=== PATIENT | female | born 1970 | race Caucasian/White ===

== ENCOUNTER 2018-03-19 14:10 | Emergency (ER) | payer MEDICARE, MEDICAID ==
[~2018-03-19 14:10] MED LIST: HYDR50CA47 PO; IMAT400PT GT
[2018-03-19] MEDS ORDERED: amLODIPine BESYL(*) 5 MG TAB PO ONE (14:40)
[2018-03-19] MEDS ORDERED: CARVEDILOL 3.125 MG TAB PO ONE (14:40)
[2018-03-19] MEDS ORDERED: hydrALAZINE HCL 20 MG/ML VIAL IVP ONE (14:40)
--- NOTE | 2018-03-19 14:49 | ER Report ---
History and Physical Time Seen By MD: 14:25 Hx. of Stated Complaint: PT REPORTS "THERE IS A LOT GOING ON". PT IS VISITING FROM [place], OUT OF MEDICATIONS-DOES NOT KNOW WHAT MEDS SHE TAKES, HAS A HEADACHE, SORE THROAT, "I DON'T FEEL GOOD". 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 History of pulmonary embolus,, OR, splenectomy, and states she was taken off of anticoagulation 2 years ago though cannot tell us why. Lives in [place], arrives here yesterday and is staying with her mother for 1-2 months. She reports that she has not taken her medications for 2 months, presents with 2 days of "not feeling well". Specific symptoms include general fatigue, generalized weakness, shakiness, moderate gradual onset headache. Headache is worse in the front but does radiate to the back. Last similar headache was 2 months ago. Patient does not have a plan for care here at this point but was hoping to be evaluated by the cancer center while she was here. She does not recall medications or doses. She does deny chest pain, shortness of breath, abdominal pain, vomiting, fevers, weight change, night sweats. She denies lower extremity edema. REVIEW OF SYSTEMS: Constitutional: No fever, no chills. Eyes: no r diplopia, blurred vision. L blind as above ENT: sore throat, uri symptoms Cardiovascular: No chest pain, no palpitations. Respiratory: mild dyspnea Gastrointestinal: No abdominal pain, no vomiting. Genitourinary: no change in urination Musculoskeletal: No back pain. Skin: No rashes. Neurological: above Remainder of the 14 system rev: Yes Allergies: Coded Allergies: codeine (Verified Allergy, Unknown, 03/19/18) Home Meds Active Scripts Lisinopril (LISINOPRIL) 40 Mg Tablet, 40 MG PO QDAY, #14 TAB Prov:ANIA DAVILA MD 03/19/18 Amlodipine Besylate (AMLODIPINE BESYLATE) 10 Mg Tablet, 1 TAB PO QDAY, #14 TAB Prov:ANIA DAVILA MD 03/19/18 Carvedilol (CARVEDILOL) 3.125 Mg Tab, 3.125 MG PO BID, #28 TAB Prov:ANIA DAVILA MD 03/19/18 Discontinued Reported Medications Imatinib Mesylate (GLEEVEC) 400 Mg Tab, 400 MG GT DAILY, TAB 01/30/16 Discontinued Scripts Hydroxyzine Pamoate (VISTARIL) 50 Mg Capsule, 50 MG PO Q4-6H PRN for ANXIETY, #30 CAPSULE Prov:PHILL PACHECO [employer] WORK[employer] 01/30/16 Reviewed Nurses Notes: Yes Old Medical Records Reviewed: Yes Constitutional Vital Sign - Last 24 Hours 03/19/18 03/19/18 03/19/18 03/19/18 14:10 14:15 14:30 14:33 Temp 98.1 Pulse 84 86 74 Resp 18 9 B/P (MAP) 216/104 210/113 (145) Pulse Ox 94 92 O2 Delivery Room Air 03/19/18 03/19/18 03/19/18 03/19/18 14:52 14:57 15:00 15:02 Pulse ? B/P (MAP) 189/96 (127) ???/??? (1665) 03/19/18 03/19/18 03/19/18 03/19/18 15:07 15:12 15:16 15:17 Pulse 86 80 Resp 13 16 25 B/P (MAP) 158/85 (109) Pulse Ox 94 82 95 03/19/18 03/19/18 03/19/18 03/19/18 15:22 15:27 15:30 15:32 Pulse 82 85 Resp 19 27 12 B/P (MAP) 159/98 (118) Pulse Ox 96 95 03/19/18 03/19/18 03/19/18 03/19/18 15:37 15:52 16:00 16:07 Pulse 83 Resp 16 24 23 B/P (MAP) 176/101 (126) Pulse Ox 100 97 94 03/19/18 03/19/18 16:22 16:25 Pulse 81 Resp 14 B/P (MAP) 178/94 (122) Physical Exam General Appearance: The patient is alert, has no immediate need for airway protection and no signs of toxicity. Eyes: Pupils equal and round no pallor or injection. baseline loss of vision OS ENT, Mouth: mm slightly dry. Uvula midline. Respiratory: There are no retractions, lungs are clear to auscultation. Cardiovascular: Regular rate and rhythm. Gastrointestinal: Abdomen is soft and non tender, no masses, bowel sounds normal. Neurological: pt tearful but cooperative. Alert, moves all ext .No facial droop Skin: Warm and dry, no rashes. Musculoskeletal: Neck is supple non tender. Extremities are nontender, nonswollen and have full range of motion. DIFFERENTIAL DIAGNOSIS: After history and physical exam differential diagnosis was considered for altered mental status including but not limited to hypoglycemia, infectious process, electrolyte abnormality, head injury and intoxicants., Hypertensive emergency, hypertensive encephalopathy, acute kidney injury, electrolyte disorder, ACS, VTE, or other emergent etiology. Medical Decision Making Data Points Result Diagram: 03/19/18 1448 03/19/18 1448 Laboratory Hematology Test 03/19/18 14:45 03/19/18 14:48 Urine Color Yellow Urine Clarity Cloudy Urine pH 6.0 pH (4.8-9.5) Urine Specific [place] 1.021 Urine Protein 100 mg/dL (NEGATIVE) Urine Glucose (UA) Negative mg/dL (NEGATIVE) Urine Ketones Negative mg/dL (NEGATIVE) Urine Blood Negative (NEGATIVE) Urine Nitrite Negative (NEGATIVE) Urine Bilirubin Negative (NEGATIVE) Urine Urobilinogen 2.0 mg/dL (0.2-1.9) Urine Leukocyte Esterase Small (NEGATIVE) Urine RBC None /HPF (0-2/HPF) Urine WBC 19 /HPF (0-5/HPF) Urine Squamous Epithelial Cells Many /LPF (</=FEW) Urine Bacteria Few /HPF (NONE-FEW) Urine Mucus Few /HPF (NONE-FEW) Red Blood Count 5.53 M/uL (4.17-5.56) Mean Corpuscular Volume 75.1 fL (80.0-96.0) Mean Corpuscular Hemoglobin 25.0 pg (26.0-33.0) Mean Corpuscular Hemoglobin Concent 33.2 g/dL (32.0-36.0) Red Cell Distribution Width 16.4 % (11.5-14.5) Mean Platelet Volume 8.9 fL (7.2-11.1) Neutrophils (%) (Auto) 85.8 % (39.4-72.5) Lymphocytes (%) (Auto) 10.7 % (17.6-49.6) Monocytes (%) (Auto) 2.9 % (4.1-12.4) Eosinophils (%) (Auto) 0.2 % (0.4-6.7) Basophils (%) (Auto) 0.4 % (0.3-1.4) Nucleated RBC Relative Count (auto) 0.1 /100WBC Neutrophils # (Auto) 15.5 K/uL (2.0-7.4) Lymphocytes # (Auto) 1.9 K/uL (1.3-3.6) Monocytes # (Auto) 0.5 K/uL (0.3-1.0) Eosinophils # (Auto) 0.0 K/uL (0.0-0.5) Basophils # (Auto) 0.1 K/uL (0.0-0.1) Nucleated RBC Absolute Count (auto) 0.02 K/uL Peripheral Blood Smear Yes Y/N Prothrombin Time 12.8 seconds (12.0-14.4) Prothromb Time International Ratio 0.97 Activated Partial Thromboplast Time 28 seconds (23-35) Sodium Level 138 mmol/L (137-145) Potassium Level 3.8 mmol/L (3.5-5.0) Chloride Level 101 mmol/L (98-107) Carbon Dioxide Level 27 mmol/L (22-31) Blood Urea Nitrogen 18 mg/dl (7-18) Creatinine 1.00 mg/dl (0.52-1.04) Glomerular Filtration Rate Calc 60.0 Random Glucose 122 mg/dl (75-110) Calcium Level 9.0 mg/dl (8.4-10.2) Magnesium Level 2.0 mg/dl (1.7-2.2) Total Bilirubin 0.3 mg/dl (0.2-1.3) Aspartate Amino Transf (AST/SGOT) 15 U/L (0-35) Alanine Aminotransferase (ALT/SGPT) 15 U/L (0-56) Alkaline Phosphatase 70 U/L (0-126) Troponin I 0.017 ng/ml Total Protein 7.2 g/dl (6.3-8.2) Albumin 4.1 g/dl (3.5-5.0) Lipase 113 U/L (23-300) Chemistry Test 03/19/18 14:45 03/19/18 14:48 Urine Color Yellow Urine Clarity Cloudy Urine pH 6.0 pH (4.8-9.5) Urine Specific [place] 1.021 Urine Protein 100 mg/dL (NEGATIVE) Urine Glucose (UA) Negative mg/dL (NEGATIVE) Urine Ketones Negative mg/dL (NEGATIVE) Urine Blood Negative (NEGATIVE) Urine Nitrite Negative (NEGATIVE) Urine Bilirubin Negative (NEGATIVE) Urine Urobilinogen 2.0 mg/dL (0.2-1.9) Urine Leukocyte Esterase Small (NEGATIVE) Urine RBC None /HPF (0-2/HPF) Urine WBC 19 /HPF (0-5/HPF) Urine Squamous Epithelial Cells Many /LPF (</=FEW) Urine Bacteria Few /HPF (NONE-FEW) Urine Mucus Few /HPF (NONE-FEW) White Blood Count 18.1 k/uL (4.5-11.0) Red Blood Count 5.53 M/uL (4.17-5.56) Hemoglobin 13.8 g/dL (12.0-16.0) Hematocrit 41.6 % (34.0-47.0) Mean Corpuscular Volume 75.1 fL (80.0-96.0) Mean Corpuscular Hemoglobin 25.0 pg (26.0-33.0) Mean Corpuscular Hemoglobin Concent 33.2 g/dL (32.0-36.0) Red Cell Distribution Width 16.4 % (11.5-14.5) Platelet Count 207 K/uL (150-450) Mean Platelet Volume 8.9 fL (7.2-11.1) Neutrophils (%) (Auto) 85.8 % (39.4-72.5) Lymphocytes (%) (Auto) 10.7 % (17.6-49.6) Monocytes (%) (Auto) 2.9 % (4.1-12.4) Eosinophils (%) (Auto) 0.2 % (0.4-6.7) Basophils (%) (Auto) 0.4 % (0.3-1.4) Nucleated RBC Relative Count (auto) 0.1 /100WBC Neutrophils # (Auto) 15.5 K/uL (2.0-7.4) Lymphocytes # (Auto) 1.9 K/uL (1.3-3.6) Monocytes # (Auto) 0.5 K/uL (0.3-1.0) Eosinophils # (Auto) 0.0 K/uL (0.0-0.5) Basophils # (Auto) 0.1 K/uL (0.0-0.1) Nucleated RBC Absolute Count (auto) 0.02 K/uL Peripheral Blood Smear Yes Y/N Prothrombin Time 12.8 seconds (12.0-14.4) Prothromb Time International Ratio 0.97 Activated Partial Thromboplast Time 28 seconds (23-35) Glomerular Filtration Rate Calc 60.0 Calcium Level 9.0 mg/dl (8.4-10.2) Magnesium Level 2.0 mg/dl (1.7-2.2) Total Bilirubin 0.3 mg/dl (0.2-1.3) Aspartate Amino Transf (AST/SGOT) 15 U/L (0-35) Alanine Aminotransferase (ALT/SGPT) 15 U/L (0-56) Alkaline Phosphatase 70 U/L (0-126) Troponin I 0.017 ng/ml Total Protein 7.2 g/dl (6.3-8.2) Albumin 4.1 g/dl (3.5-5.0) Lipase 113 U/L (23-300) Coagulation Test 03/19/18 14:48 Prothrombin Time 12.8 seconds Prothromb Time International Ratio 0.97 Activated Partial Thromboplast Time 28 seconds Urinalysis Test 03/19/18 14:45 Urine Color Yellow Urine Clarity Cloudy Urine pH 6.0 pH (4.8-9.5) Urine Specific [place] 1.021 Urine Protein 100 mg/dL (NEGATIVE) Urine Glucose (UA) Negative mg/dL (NEGATIVE) Urine Ketones Negative mg/dL (NEGATIVE) Urine Blood Negative (NEGATIVE) Urine Nitrite Negative (NEGATIVE) Urine Bilirubin Negative (NEGATIVE) Urine Urobilinogen 2.0 mg/dL (0.2-1.9) Urine Leukocyte Esterase Small (NEGATIVE) Urine RBC None /HPF (0-2/HPF) Urine WBC 19 /HPF (0-5/HPF) Urine Squamous Epithelial Cells Many /LPF (</=FEW) Urine Bacteria Few /HPF (NONE-FEW) Urine Mucus Few /HPF (NONE-FEW) ED Course/Re-evaluation ED Course 47 f with CML, HTN, BPD, hx cva, lives in [facility], per prior reports has not been consistent with taking medications, presents with burris, htn, malaise after not taking meds x 2 mo. She is staying with her mother and plans to be here 'a month or so'. Her initial exam is nonfocal and given htn, burris, I considered sah, ich, or other emergent etiology. Symptoms improved somewhat with bp management, with rpt exam unremarkable with exception of complete reproduction of pain with r occipital palpation c/w tension burris. After ED eval, unlikely pt has emergent etiology and understands need to est care in area and take meds daily. D/c with mother with SRP's. Decision to Disposition Date: Mar 19, 2018 Decision to Disposition Time: 16:14 Depart Departure Latest Vital Signs Vital Signs Date Time Temp Pulse Resp B/P (MAP) Pulse Ox O2 Delivery O2 Flow Rate FiO2 03/19/18 16:25 178/94 (122) 03/19/18 16:22 81 14 03/19/18 16:07 94 03/19/18 14:10 98.1 Room Air Impression: Primary Impression: Uncontrolled hypertension Additional Impression: Headache Condition: Improved Disposition: HOME OR SELF-CARE Referrals: [facility] New Scripts Lisinopril (LISINOPRIL) 40 Mg Tablet 40 MG PO QDAY, #14 TAB Prov: ANIA DAVILA MD 03/19/18 Amlodipine Besylate (AMLODIPINE BESYLATE) 10 Mg Tablet 1 TAB PO QDAY, #14 TAB Prov: ANIA DAVILA MD 03/19/18 Carvedilol (CARVEDILOL) 3.125 Mg Tab 3.125 MG PO BID, #28 TAB Prov: ANIA DAVILA MD 03/19/18 Patient Instructions: Acute Headache (ED), Hypertension (DC) Additional Instructions: I have prescribed 3 blod pressure medications for you, for 2 weeks. Please follow up this week with the [facility] for further evaluation and prescriptions as needed if you will be here longer than 2 weeks. Your headache d oes not appear to be a serious cause right now, but please return if you have new, worsening, or concerning symptoms. It is important you establish care in the area if you are going to be staying here longer than 1-2 weeks, and you coordinate this care with your home physicians. Problem Qualifiers Additional Impression: Headache Headache type: unspecified Headache chronicity pattern: unspecified jonna fuentes Intractability: not intractable Qualified Codes: R51 - Headache ANIA DAVILA MD Mar 19, 2018 14:49
[2018-03-19] MEDS ORDERED: NS(*) 0.9% 1000 ML BAG 1,000 ML IV ONE (14:50)
[2018-03-19 15:02] LABS: PLATELET COUNT, AUTOMATED 207 K/uL (150-450)
[2018-03-19 15:17] LABS: INR 0.97
--- NOTE | 2018-03-19 15:18 | RADIOLOGY IMAGING REPORT ---
[place] [facility] [place] Julia You : 1970 MR: [id number] V: [id number] EXAM DATE: ORDERING PHYSICIAN: ANIA DAVILA TECHNOLOGIST: [place] [facility] [place] You : 1970 Visit/Account:[id number] Date of Sevice: 03/19/2018 CHEST PA LAT Additional pertinent History: Altered mental status COMPARISON STUDIES: 01/30/2016 FINDINGS: Support lines and catheters: None Lungs and Pleura: Lung parkinson well expanded with no infiltrates or consolidations. No parenchymal ma ss lesions are seen. There are no effusions Heart and vasculature: Negative. Karon and Mediastinum: Negative. Bones and Chest wall: Status post anterior cervical fusion at the C5-6 level. Upper Abdomen: Negative. IMPRESSION: 1. Negative chest for acute cardiopulmonary disease. Report Dictated By: Prem Cardenas MD at 03/19/2018 3:12 PM Report E-Signed By: Prem Cardenas MD at 03/19/2018 3:13 PM WSN:[email or web address]
--- NOTE | 2018-03-19 15:29 | RADIOLOGY IMAGING REPORT ---
FACILITY: [facility] PATIENT NAME: Julia You : 1970 MR: [id number] V: [id number] EXAM DATE: ORDERING PHYSICIAN: ANIA DAVILA TECHNOLOGIST: Location: [facility] [place] Patient: Julia You : 1970 Visit/Account:[id number] Date of Sevice: 03/19/2018 CT Head without contrast Indication: Altered mental status. History of hemorrhagic CVA. Comparison: None available Technique: Axial CT images were obtained through the brain from the skull base to the vertex without administration of IV contrast. Reformatted coronal and sagittal images were also obtained. One of the following dose optimization techniques was utilized in the performance of this exam: autom ated exposure control; adjustment of the mA and/or kV according to the patient's size; or use of an i terative reconstruction technique. Specific details can be referenced in the facility's radiology CT exam operational policy. Findings: No evidence of mass, mass effect, or midline shift. No acute intracranial hemorrhage or acute territorial infarction. No extra-axial fluid collection or hydrocephalus. Significant periventricular white matter changes w ith a small previous posterior right frontal ischemic event. There may be similar areas of decreased attenuation within the midbrain. Trejo/white matter differentiation appears normal. Bony structures show no fractures or lesions. The visualized paranasal sinuses and mastoid air cells are clear. IMPRESSION: 1. No acute intracranial abnormality. 2. Prominent periventricular changes which are nonspecific and could be due to small vessel ischemic changes, white matter disease or post inflammatory process. Previous small old ischemic event to th e posterior right frontal lobe. Report Dictated By: Jd Felipe at 03/19/2018 3:18 PM Report E-Signed By: Jd Felipe at 03/19/2018 3:24 PM WSN:[email or web address]
[2018-03-19] MEDS ORDERED: METOCLOPRAMIDE 10 MG/2 ML SDV IVP ONE (15:40)
[2018-03-19] MEDS ORDERED: ACETAMINOPHEN 325 MG TAB PO ONE (15:40)
[2018-03-19] MEDS ORDERED: diphenhydrAMINE 50 MG/ML VIAL IVP ONE (15:40)
--- NOTE | 2018-03-19 16:12 | EKG ---
FACILITY: [facility] PATIENT NAME: FRANK DE : [id number] MR: [id number] V: [id number] EXAM DATE: ORDERING PHYSICIAN: ANIA DAVILA TECHNOLOGIST: PEDRO Varela Reason : DYSPNEA Blood Pressure : / mmHG Vent. Rate : 071 BPM Atrial Rate : 071 BPM P-R Int : 198 ms QRS Dur : 080 ms QT Int : 420 ms P-R-T Axes : 060 -16 035 degrees QTc Int : 456 ms Normal sinus rhythm Minimal voltage criteria for LVH, may be normal variant Inferior infarct , age undetermined Cannot rule out Anterior infarct , age undetermined Abnormal ECG When compared with ECG of 30-JAN-2016 11:09, Relatively unchanged Confirmed by FRANCISCO LUNA ([id number]) on 03/19/2018 5:57:32 PM Referred By: GIOVANNI Confirmed By:FRANCISCO LUNA
[2018-03-19] MEDS ORDERED: AMLO-127 PO (16:16)
[2018-03-19] MEDS ORDERED: CAR3.125 PO (16:16)
[2018-03-19] MEDS ORDERED: LISI-374 PO (16:20)
[2018-03-19 16:25] VITALS: BP 178/94
[2018-03-22] MEDS ORDERED: CIPR-214 PO (16:24)
== END 2018-03-19 16:35 | disposition home or self-care (01) ==
LOC: ER 14:42
DX: I10 Essential (primary) hypertension (principal); R51 Headache
CPT/HCPCS: 36415; 70450; 71046; 81001; 83690; 83735; 84484; 85025; 85610; 85730; 93005; 96361; 96374; 96375; 99284; A9270; J0360; J1200; J2765; J7030; 82040; 82247; 82310; 82374; 82435; 82565; 82947; 84075; 84132; 84155; 84295; 84450; 84460; 84520

== ENCOUNTER → 2018-03-22 | Outpatient (CLI) | payer MEDICARE, MEDICAID ==
[~2018-03-22] MED LIST changes: +AMLO-127 PO; +CAR3.125 PO; +CIPR-214 PO; +LISI-374 PO
[2018-03-22 11:13] LABS: PLATELET COUNT, AUTOMATED 234 K/uL (150-450)
[2018-03-22 11:29] LABS: LDL CHOLESTEROL 96 mg/dl
== END ==
LOC: LAB 10:42
PROVIDERS: ATTEND Nurse Practitioner Primary Care
DX: E78.00 Pure hypercholesterolemia, unspecified (principal); E11.9 Type 2 diabetes mellitus without complications; R53.83 Other fatigue; C92.10 Chronic myeloid leukemia, BCR/ABL-positive, not having achieved remission; I10 Essential (primary) hypertension; N39.0 Urinary tract infection, site not specified
CPT/HCPCS: 36415; 81001; 82040; 82043; 82247; 82306; 82310; 82374; 82435; 82465; 82565; 82607; 82728; 82746; 82947; 83036; 83540; 83550; 83718; 84075; 84132; 84155; 84295; 84443; 84450; 84460; 84478; 84520; 85025; 87088

== ENCOUNTER → 2018-03-27 | Outpatient (CLI) | payer MEDICARE, MEDICAID ==
[~2018-03-27] MED LIST changes: +ATOR40TA69 PO; +CHOL500050 PO
[2018-03-27 14:31] LABS: PLATELET COUNT, AUTOMATED 233 K/uL (150-450)
--- NOTE | 2018-03-27 14:52 | RADIOLOGY IMAGING REPORT ---
FACILITY: [facility] PATIENT NAME: Julia You : 1970 MR: [id number] V: [id number] EXAM DATE: ORDERING PHYSICIAN: JANICE GRIJALVA TECHNOLOGIST: Location: [facility] - [place] Patient: Julia You : 1970 Visit/Account:[id number] Date of Sevice: 03/27/2018 Exam type: CHEST PA LAT History: Fatigue and weakness for several days Comparison: March 19, 2018 Findings: The lungs are free of acute effusions, infiltrates or edema. The cardiac silhouette is normal in siz e. The trachea is in midline. Incompletely imaged are postsurgical changes from anterior fusion of the lower cervical spine. IMPRESSION: 1. No acute cardiopulmonary process is seen Report Dictated By: Zoe Gillette MD at 03/27/2018 2:44 PM Report E-Signed By: Zoe Gillette MD at 03/27/2018 2:48 PM WSN:[email or web address]
== END ==
LOC: RAD 13:59
PROVIDERS: ATTEND Nurse Practitioner Primary Care
DX: R53.83 Other fatigue (principal); R53.1 Weakness
CPT/HCPCS: 36415; 71046; 82040; 82247; 82310; 82374; 82435; 82565; 82947; 83735; 84075; 84132; 84155; 84295; 84450; 84460; 84520; 85025

== ENCOUNTER 2018-04-03 03:34 | Emergency (ER) | payer MEDICARE, MEDICAID ==
--- NOTE | 2018-04-03 03:30 | ER Report ---
History and Physical Time Seen By MD: 03:29 HPI/ROS CHIEF COMPLAINT: Syncopal episode HISTORY OF PRESENT ILLNESS: Patient is a 47-year-old female here status post syncopal episode after going to the bathroom and getting up from a seated position. Patient reports that she became lightheaded when she stood up quickly and woke up on the ground with her mother present. Patient denies headache, blurred vision, focal neurological findings. She did recently just start taking trazodone for sleep aid. Patient is hemodynamically stable at time of e valuation. REVIEW OF SYSTEMS: Constitutional: No fever, no chills. Eyes: No discharge. ENT: No sore throat. Cardiovascular: No chest pain, no palpitations. Respiratory: No cough, no shortness of breath. Gastrointestinal: No abdominal pain, no vomiting. Genitourinary: No hematuria. Musculoskeletal: No back pain. Skin: No rashes. Neurological: No headache. Allergies: Coded Allergies: codeine (Verified Allergy, Unknown, 03/19/18) Home Meds Active Scripts Trazodone Hcl (TRAZODONE HCL) 50 Mg Tablet, 0.5-1 TAB PO QHS PRN for diff sleeping, #30 TAB Prov:KALINA FLANAGAN MD 04/01/18 Cholecalciferol (Vitamin D3) (VITAMIN D3) 50,000 Unit Capsule, 1 CAP PO QWEEK, #8 CAPSULE 1 Refill Prov:KALINA FLANAGAN MD 04/01/18 Atorvastatin Calcium (ATORVASTATIN CALCIUM) 40 Mg Tablet, 1 TAB PO QDAY for 30 Days, #30 TAB 3 Refills Prov:KALINA FLANAGAN MD 04/01/18 Lisinopril (LISINOPRIL) 40 Mg Tablet, 40 MG PO QDAY, #30 TAB 5 Refills Prov:KALINA FLANAGAN MD 04/01/18 Amlodipine Besylate (AMLODIPINE BESYLATE) 10 Mg Tablet, 1 TAB PO QDAY, #30 TAB 5 Refills Prov:KALINA FLANAGAN MD 04/01/18 Carvedilol (CARVEDILOL) 3.125 Mg Tab, 3.125 MG PO BID, #30 TAB 5 Refills Prov:KALINA FLANAGAN MD 04/01/18 Smoking Status: Never Smoker Constitutional Vital Sign - Last 24 Hours 04/03/18 04/03/18 04/03/18 04/03/18 03:31 03:34 03:44 03:54 Temp 97.8 Pulse 60 ??? 62 ??? Resp 16 19 B/P (MAP) 99/74 99/74 (82) Pulse Ox 92 92 91 O2 Delivery Room Air 04/03/18 04/03/18 04/03/18 04/03/18 04:00 04:04 04:08 04:14 Pulse ??? 61 Resp 13 B/P (MAP) ???/??? (1665) 112/71 (85) Pulse Ox 93 04/03/18 04/03/18 04/03/18 04:24 04:30 04:34 Pulse 62 66 Resp 23 14 B/P (MAP) 102/56 (71) Pulse Ox 92 92 Physical Exam General Appearance: The patient is alert, has no immediate need for airway protection and no signs of toxicity. No acute distress Eyes: Pupils equal and round no pallor or injection. ENT, Mouth: Mucous membranes are moist. Respiratory: There are no retractions, lungs are clear to auscultation. Cardiovascular: Regular rate and rhythm. Gastrointestinal: Abdomen is soft and non tender, no masses, bowel sounds normal. Neurological: No focal neurological deficits on examination Skin: Warm and dry, no rashes. Musculoskeletal: Neck is supple non tender. Extremities are nontender, nonswollen and have full range of motion. DIFFERENTIAL DIAGNOSIS: After history and physical exam differential diagnosis was considered for medication side effect, dehydration, orthostasis, trauma, concussion, electrolyte abnormality Medical Decision Making Data Points Result Diagram: 04/03/18 0343 04/03/18 0343 Laboratory Hematology Test 04/03/18 03:43 Red Blood Count 5.79 M/uL (4.17-5.56) Mean Corpuscular Volume 78.2 fL (80.0-96.0) Mean Corpuscular Hemoglobin 24.5 pg (26.0-33.0) Mean Corpuscular Hemoglobin Concent 31.3 g/dL (32.0-36.0) Red Cell Distribution Width 16.4 % (11.5-14.5) Mean Platelet Volume 9.2 fL (7.2-11.1) Neutrophils (%) (Auto) 83.0 % (39.4-72.5) Lymphocytes (%) (Auto) 12.7 % (17.6-49.6) Monocytes (%) (Auto) 2.8 % (4.1-12.4) Eosinophils (%) (Auto) 0.8 % (0.4-6.7) Basophils (%) (Auto) 0.7 % (0.3-1.4) Nucleated RBC Relative Count (auto) 0.0 /100WBC Neutrophils # (Auto) 14.5 K/uL (2.0-7.4) Lymphocytes # (Auto) 2.2 K/uL (1.3-3.6) Monocytes # (Auto) 0.5 K/uL (0.3-1.0) Eosinophils # (Auto) 0.1 K/uL (0.0-0.5) Basophils # (Auto) 0.1 K/uL (0.0-0.1) Nucleated RBC Absolute Count (auto) 0.00 K/uL Sodium Level 135 mmol/L (137-145) Potassium Level 4.4 mmol/L (3.5-5.0) Chloride Level 106 mmol/L (98-107) Carbon Dioxide Level 25 mmol/L (22-31) Blood Urea Nitrogen 23 mg/dl (7-18) Creatinine 1.00 mg/dl (0.52-1.04) Glomerular Filtration Rate Calc 60.0 Random Glucose 167 mg/dl (75-110) Calcium Level 9.2 mg/dl (8.4-10.2) Total Bilirubin 0.3 mg/dl (0.2-1.3) Aspartate Amino Transf (AST/SGOT) 15 U/L (0-35) Alanine Aminotransferase (ALT/SGPT) 24 U/L (0-56) Alkaline Phosphatase 62 U/L (0-126) Total Protein 7.0 g/dl (6.3-8.2) Albumin 3.9 g/dl (3.5-5.0) Chemistry Test 04/03/18 03:43 White Blood Count 17.5 k/uL (4.5-11.0) Red Blood Count 5.79 M/uL (4.17-5.56) Hemoglobin 14.2 g/dL (12.0-16.0) Hematocrit 45.3 % (34.0-47.0) Mean Corpuscular Volume 78.2 fL (80.0-96.0) Mean Corpuscular Hemoglobin 24.5 pg (26.0-33.0) Mean Corpuscular Hemoglobin Concent 31.3 g/dL (32.0-36.0) Red Cell Distribution Width 16.4 % (11.5-14.5) Platelet Count 199 K/uL (150-450) Mean Platelet Volume 9.2 fL (7.2-11.1) Neutrophils (%) (Auto) 83.0 % (39.4-72.5) Lymphocytes (%) (Auto) 12.7 % (17.6-49.6) Monocytes (%) (Auto) 2.8 % (4.1-12.4) Eosinophils (%) (Auto) 0.8 % (0.4-6.7) Basophils (%) (Auto) 0.7 % (0.3-1.4) Nucleated RBC Relative Count (auto) 0.0 /100WBC Neutrophils # (Auto) 14.5 K/uL (2.0-7.4) Lymphocytes # (Auto) 2.2 K/uL (1.3-3.6) Monocytes # (Auto) 0.5 K/uL (0.3-1.0) Eosinophils # (Auto) 0.1 K/uL (0.0-0.5) Basophils # (Auto) 0.1 K/uL (0.0-0.1) Nucleated RBC Absolute Count (auto) 0.00 K/uL Glomerular Filtration Rate Calc 60.0 Calcium Level 9.2 mg/dl (8.4-10.2) Total Bilirubin 0.3 mg/dl (0.2-1.3) Aspartate Amino Transf (AST/SGOT) 15 U/L (0-35) Alanine Aminotransferase (ALT/SGPT) 24 U/L (0-56) Alkaline Phosphatase 62 U/L (0-126) Total Protein 7.0 g/dl (6.3-8.2) Albumin 3.9 g/dl (3.5-5.0) EKG/Imaging EKG Interpretation Test Reason : SYNCOPE Blood Pressure : / mmHG Vent. Rate : 062 BPM Atrial Rate : 062 BPM P-R Int : 244 ms QRS Dur : 084 ms QT Int : 438 ms P-R-T Axes : 058 003 055 degrees QTc Int : 444 ms Sinus rhythm with 1st degree AV block Borderline left axis Probable left atrial enlargement Poor R wave progression anteriorly Nonspecific ST findings through precordial leads Confirmed by MELVA GRANADO ([id number]) on 04/03/2018 6:17:39 AM Referred By: Confirmed By:MELVA GRANADO Imaging [facility]: [facility] [place] Patient: Julia You : 1970 Visit/Account:[id number] Date of Sevice: 04/03/2018 CT BRAIN NO CONTRAST HISTORY: Fall. Syncope. COMPARISON: 03/19/2018. TECHNIQUE: Axial images were obtained from the skull base to the vertex without contrast. Sagittal and coronal reformats were performed. One of the following dose optimization techniques was utilized in the performance of this exam: Automated exposure control; adjustment of the mA and/or kV according to the patient's size; or use of an iterative reconstruction technique. Specific details can be referenced in the facility's radiology CT exam operational policy. CONTRAST: None. FINDINGS: Brain: No intracranial hemorrhage, mass, or edema. There are nonspecific periventricular, subcortical, and deep white matter low attenuation foci, severe. There is an old infarct of the right basal ganglia, unchanged. Ventricles and sulci: Sulci are normal. There is mild ex vacuo dilation of the right lateral ventricle. Osseous structures: Intact. Paranasal sinuses and mastoids: Rightward nasal septal deviation. Minimal mucosal thickening of the right maxillary sinus. Mastoids are clear. Orbits and soft tissues: There are dental caries. Bilateral optic drusen. IMPRESSION: 1. Stable appearance of the brain without acute intracranial abnormality. 2. Severe nonspecific white matter changes, potentially due to accelerated chronic microvascular ischemic change. Demyelinating disease, vasculitis, CADASIL, encephalitis, and inherited metabolic disorders can cause a similar appearance. Please correlate with clinical history. 3. Chronic infarct in the right basal ganglia, unchanged. CHEST SINGLE AP 04/03/2018 03:41 hours. HISTORY: Fall. Syncope. Cough. COMPARISON: 03/27/2018 and studies dating to 01/30/2016. TECHNIQUE: Portable semiupright AP view of the chest. FINDINGS: Tubes/lines/hardware: Partially visualized plate and screws from anterior cervical fusion. Pulmonary/pleura: Lungs are clear. There is no pneumothorax or pleural effusion. Cardiomediastinal: Cardiac and mediastinal silhouettes are within normal limits. Bones/soft tissues: No acute osseous abnormality. There is mild degenerative c hange of the spine. There is mild degenerative change of the glenohumeral joints. The visible abdomen is normal. IMPRESSION: 1. No acute cardiopulmonary process. ED Course/Re-evaluation ED Course Patient is a 47-year-old female here with complaints of syncopal episode after starting a new medication trazodone. Patient also reportedly had her syncopal episode after standing up from a seated position. Patient has no obvious signs of trauma. 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 Chest x-ray showed no acute findings. EKG showed no ischemic changes or arrhythmias. Labs were significant for white blood cell count of 17,000 however when compared to prior labs in the recent past, this was found be stable. Patient was administered 1 L normal saline for hydration. Patient was hemodynamically stable, in no acute distress at time of discharge. Return precautions provided. Close PCP follow-up recommended in 24-48 hours. Decision to Disposition Date: Apr 03, 2018 Decision to Disposition Time: 04:37 Depart Departure Latest Vital Signs Vital Signs Date Time Temp Pulse Resp B/P (MAP) Pulse Ox O2 Delivery O2 Flow Rate FiO2 04/03/18 04:34 66 14 92 04/03/18 04:30 102/56 (71) 04/03/18 03:31 97.8 Room Air Impression: Primary Impression: Syncope Condition: Improved Disposition: HOME OR SELF-CARE Patient Instructions: Syncope (ED) Additional Instructions: Please drink plenty of water. Please follow-up in the next 24-48 hours with your family doctor. Please return immediately if you develop headache, instability, recurrent loss of consciousness episodes, nausea, vomiting, visual changes, fevers or chills. Please be careful when taking trazodone as this medication may sedate you and cause you to to be unsteady on your feet ANNE-MARIE HOLT DO Apr 03, 2018 03:29
[~2018-04-03 03:34] MED LIST changes: -AZIT-1 PO; -NAPR500T31 PO; -TRAM-420 PO
[2018-04-03] MEDS ORDERED: NS(*) 0.9% 1000 ML BAG 1,000 ML IV ONE (03:41)
[2018-04-03 04:02] LABS: PLATELET COUNT, AUTOMATED 199 K/uL (150-450)
--- NOTE | 2018-04-03 04:22 | RADIOLOGY IMAGING REPORT ---
FACILITY: [facility] [place] PATIENT NAME: Julia You : 1970 MR: [id number] V: [id number] EXAM DATE: ORDERING PHYSICIAN: ANNE-MARIE HOLT TECHNOLOGIST: Location: [facility] [place] Patient: Julia You : 1970 Visit/Account:[id number] Date of Sevice: 04/03/2018 CHEST SINGLE AP 04/03/2018 03:41 hours. HISTORY: Fall. Syncope. Cough. COMPARISON: 03/27/2018 and studies dating to 01/30/2016. TECHNIQUE: Portable semiupright AP view of the chest. FINDINGS: Tubes/lines/hardware: Partially visualized plate and screws from anterior cervical fusion. Pulmonary/pleura: Lungs are clear. There is no pneumothorax or pleural effusion. Cardiomediastinal: Cardiac and mediastinal silhouettes are within normal limits. Bones/soft tissues: No acute osseous abnormality. There is mild degenerative change of the spine. The re is mild degenerative change of the glenohumeral joints. The visible abdomen is normal. IMPRESSION: 1. No acute cardiopulmonary process. Report Dictated By: Carolyn Hernandez at 04/03/2018 4:17 AM Report E-Signed By: Carolyn Hernandez at 04/03/2018 4:19 AM WSN:[id number]
[2018-04-03 04:30] VITALS: BP 102/56
--- NOTE | 2018-04-03 04:32 | RADIOLOGY IMAGING REPORT ---
[place] [facility] [place] Julia You : 1970 MR: [id number] V: [id number] EXAM DATE: ORDERING PHYSICIAN: ANNE-MARIE HOLT TECHNOLOGIST: Location: [facility] Patient: Julia You : 1970 Visit/Account:[id number] Date of Sevice: 04/03/2018 CT BRAIN NO CONTRAST HISTORY: Fall. Syncope. COMPARISON: 03/19/2018. TECHNIQUE: Axial images were obtained from the skull base to the vertex without contrast. Sagittal an d coronal reformats were performed. One of the following dose optimization techniques was utilized in the performance of this exam: Autom ated exposure control; adjustment of the mA and/or kV according to the patient's size; or use of an i terative reconstruction technique. Specific details can be referenced in the facility's radiology CT exam operational policy. CONTRAST: None. FINDINGS: Brain: No intracranial hemorrhage, mass, or edema. There are nonspecific periventricular, subcortical , and deep white matter low attenuation foci, severe. There is an old infarct of the right basal gang ky, unchanged. Ventricles and sulci: Sulci are normal. There is mild ex vacuo dilation of the right lateral ventricl e. Osseous structures: Intact. Paranasal sinuses and mastoids: Rightward nasal septal deviation. Minimal mucosal thickening of the r ight maxillary sinus. Mastoids are clear. Orbits and soft tissues: There are dental caries. Bilateral optic drusen. IMPRESSION: 1. Stable appearance of the brain without acute intracranial abnormality. 2. Severe nonspecific white matter changes, potentially due to accelerated chronic microvascular isch emic change. Demyelinating disease, vasculitis, CADASIL, encephalitis, and inherited metabolic disord ers can cause a similar appearance. Please correlate with clinical history. 3. Chronic infarct in the right basal ganglia, unchanged. Report Dictated By: Carolyn Hernandez at 04/03/2018 4:19 AM Report E-Signed By: Carolyn Hernandez at 04/03/2018 4:28 AM WSN:[id number]
--- NOTE | 2018-04-03 05:05 | EKG ---
FACILITY: PATIENT NAME: FRANK DE : [id number] MR: [id number] V: [id number] EXAM DATE: ORDERING PHYSICIAN: ANNE-MARIE HOLT TECHNOLOGIST: JAN Test Reason : SYNCOPE Blood Pressure : / mmHG Vent. Rate : 062 BPM Atrial Rate : 062 BPM P-R Int : 244 ms QRS Dur : 084 ms QT Int : 438 ms P-R-T Axes : 058 003 055 degrees QTc Int : 444 ms Sinus rhythm with 1st degree AV block Borderline left axis Probable left atrial enlargement Poor R wave progression anteriorly Nonspecific ST findings through precordial leads Confirmed by MELVA GRANADO ([id number]) on 04/03/2018 6:17:39 AM Referred By: Confirmed By:MELVA GRANADO
== END 2018-04-03 04:44 | disposition home or self-care (01) ==
LOC: ER 03:38
DX: R55 Syncope and collapse (principal)
CPT/HCPCS: 36415; 70450; 71045; 85025; 93005; 96360; 99284; J7030; 82040; 82247; 82310; 82374; 82435; 82565; 82947; 84075; 84132; 84155; 84295; 84450; 84460; 84520

== ENCOUNTER → 2018-04-03 | Outpatient (CLI) | payer MEDICARE, MEDICAID ==
[~2018-04-03] MED LIST changes: +AZIT-1 PO; +NAPR500T31 PO; +TRAM-420 PO; +TRAZ50TA34 PO
== END ==
LOC: AMB 03:07
PROVIDERS: ATTEND Nurse Practitioner
DX: R42 Dizziness and giddiness (principal); R53.1 Weakness; R47.81 Slurred speech
CPT/HCPCS: A0425; A0429

== ENCOUNTER 2018-04-14 12:09 | Emergency (ER) | payer MEDICARE, MEDICAID ==
--- NOTE | 2018-04-14 12:10 | ER Report ---
History and Physical Time Seen By MD: 12:10 HPI/ROS CHIEF COMPLAINT: Coughing up "black stuff" HISTORY OF PRESENT ILLNESS: Patient is a 47-year-old female who recently moved to [place]. She presents with 1-2 months of just not feeling well over the last few days has been coughing up some black-colored sputum. She reports some subjective fevers she denies any actual chest pain or pressure. She reports nausea but no vomiting or diarrhea. Patient has no known ill contacts. Patient does have a history of chronic myelogenous leukemia. She is currently being followed by oncology. REVIEW OF SYSTEMS: Constitutional: Subjective fevers Eyes: No discharge. ENT: No sore throat. Cardiovascular: No chest pain, no palpitations. Respiratory: Cough productive of black sputum. Gastrointestinal: No abdominal pain, no vomiting. Genitourinary: No hematuria. Musculoskeletal: No back pain. Skin: No rashes. Neurological: No headache. Electronic medical record was reviewed and lab data analyzed: Review the electronic medical record shows the patient has had multiple lab draws on the , , , and March white blood cell count ranged from 17.5 on the to its highest at 20.1 on the . Hemoglobin is between 13 and 15. Differential on the showed 81% neutrophils 13% lymphs 3.6% monos. Sedimentation rate was 10 Allergies: Coded Allergies: codeine (Verified Allergy, Unknown, 04/14/18) Home Meds Active Scripts Naproxen (NAPROXEN) 500 Mg Tablet, 1 TAB PO BID PRN for PAIN, #10 TAB 0 Refills Prov:JANICE GRIJALVA DNP, FNP-BC 04/16/18 Trazodone Hcl (TRAZODONE HCL) 50 Mg Tablet, 1-2 TAB PO QHS PRN for diff sleeping, #30 TAB 0 Refills Prov:JANICE GRIJALVA DNP, FNP-BC 04/16/18 Azithromycin (ZITHROMAX) 250 Mg Tablet, 1 TAB PO QDAY for 4 Days, #4 TAB 0 Refills first dose on 04/15/18 Prov:ANIA CEBALLOS MD 04/14/18 Cholecalciferol (Vitamin D3) (VITAMIN D3) 50,000 Unit Capsule, 1 CAP PO QWEEK, #8 CAPSULE 1 Refill Prov:KALINA FLANAGAN MD 04/01/18 Atorvastatin Calcium (ATORVASTATIN CALCIUM) 40 Mg Tablet, 1 TAB PO QDAY for 30 Days, #30 TAB 3 Refills Prov:KALINA FLANAGAN MD 04/01/18 Lisinopril (LISINOPRIL) 40 Mg Tablet, 40 MG PO QDAY, #30 TAB 5 Refills Prov:KALINA FLANAGAN MD 04/01/18 Amlodipine Besylate (AMLODIPINE BESYLATE) 10 Mg Tablet, 1 TAB PO QDAY, #30 TAB 5 Refills Prov:KALINA FLANAGAN MD 04/01/18 Carvedilol (CARVEDILOL) 3.125 Mg Tab, 3.125 MG PO BID, #30 TAB 5 Refills Prov:KALINA FLANAGAN MD 04/01/18 Reported Medications Cholecalciferol (Vitamin D3) (VITAMIN D3) 1,000 Unit Tablet, 04023 UNIT PO, TAB 04/18/18 Tramadol Hcl (TRAMADOL HCL) 50 Mg Tablet, 50 MG PO Q6H PRN for PAIN, TAB 04/14/18 Discontinued Scripts Escitalopram Oxalate (ESCITALOPRAM OXALATE) 10 Mg Tablet, 10 MG PO QDAY, #30 TAB 3 Refills Prov:KALINA FLANAGAN MD 04/19/18 Past Medical/Surgical History Past medical history for hearing impairment left ear, 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 Past surgical history for 3 prior back surgeries, hysterectomy, splenectomy and tracheostomy at the time of her stroke. Smoking Status: Never Smoker Constitutional Physical Exam General Appearance: The patient is alert, has no immediate need for airway protection and no signs of toxicity. Eyes: Pupils equal and round no pallor or injection. ENT, Mouth: Mucous membranes are moist. Respiratory: There are no retractions, lungs are clear to auscultation. Cardiovascular: Regular rate and rhythm. Gastrointestinal: Abdomen is soft and non tender, no masses, bowel sounds normal. Neurological: Awake and alert Skin: Warm and dry, no rashes. Musculoskeletal: Neck is supple non tender. Extremities are nontender, nonswollen and have full range of motion. Medical Decision Making Data Points Laboratory Hematology Test 04/14/18 12:30 Red Blood Count 5.82 M/uL (4.17-5.56) Mean Corpuscular Volume 76.0 fL (80.0-96.0) Mean Corpuscular Hemoglobin 25.2 pg (26.0-33.0) Mean Corpuscular Hemoglobin Concent 33.2 g/dL (32.0-36.0) Red Cell Distribution Width 16.4 % (11.5-14.5) Mean Platelet Volume 9.0 fL (7.2-11.1) Neutrophils (%) (Auto) 85.0 % (39.4-72.5) Lymphocytes (%) (Auto) 10.7 % (17.6-49.6) Monocytes (%) (Auto) 3.2 % (4.1-12.4) Eosinophils (%) (Auto) 0.7 % (0.4-6.7) Basophils (%) (Auto) 0.4 % (0.3-1.4) Nucleated RBC Relative Count (auto) 0.0 /100WBC Neutrophils # (Auto) 13.7 K/uL (2.0-7.4) Lymphocytes # (Auto) 1.7 K/uL (1.3-3.6) Monocytes # (Auto) 0.5 K/uL (0.3-1.0) Eosinophils # (Auto) 0.1 K/uL (0.0-0.5) Basophils # (Auto) 0.1 K/uL (0.0-0.1) Nucleated RBC Absolute Count (auto) 0.01 K/uL Prothrombin Time 12.9 seconds (12.0-14.4) Prothromb Time International Ratio 0.97 Activated Partial Thromboplast Time 31 seconds (23-35) Sodium Level 139 mmol/L (137-145) Potassium Level 4.2 mmol/L (3.5-5.0) Chloride Level 105 mmol/L (98-107) Carbon Dioxide Level 28 mmol/L (22-31) Blood Urea Nitrogen 21 mg/dl (7-18) Creatinine 1.00 mg/dl (0.52-1.04) Glomerular Filtration Rate Calc 60.0 Random Glucose 99 mg/dl (75-110) Calcium Level 9.7 mg/dl (8.4-10.2) Total Bilirubin 0.3 mg/dl (0.2-1.3) Aspartate Amino Transf (AST/SGOT) 21 U/L (0-35) Alanine Aminotransferase (ALT/SGPT) 14 U/L (0-56) Alkaline Phosphatase 76 U/L (0-126) Troponin I < 0.012 ng/ml B-Type Natriuretic Peptide 14 pg/ml (0-100) Total Protein 8.1 g/dl (6.3-8.2) Albumin 4.4 g/dl (3.5-5.0) Chemistry Test 04/14/18 12:30 White Blood Count 16.1 k/uL (4.5-11.0) Red Blood Count 5.82 M/uL (4.17-5.56) Hemoglobin 14.7 g/dL (12.0-16.0) Hematocrit 44.2 % (34.0-47.0) Mean Corpuscular Volume 76.0 fL (80.0-96.0) Mean Corpuscular Hemoglobin 25.2 pg (26.0-33.0) Mean Corpuscular Hemoglobin Concent 33.2 g/dL (32.0-36.0) Red Cell Distribution Width 16.4 % (11.5-14.5) Platelet Count 239 K/uL (150-450) Mean Platelet Volume 9.0 fL (7.2-11.1) Neutrophils (%) (Auto) 85.0 % (39.4-72.5) Lymphocytes (%) (Auto) 10.7 % (17.6-49.6) Monocytes (%) (Auto) 3.2 % (4.1-12.4) Eosinophils (%) (Auto) 0.7 % (0.4-6.7) Basophils (%) (Auto) 0.4 % (0.3-1.4) Nucleated RBC Relative Count (auto) 0.0 /100WBC Neutrophils # (Auto) 13.7 K/uL (2.0-7.4) Lymphocytes # (Auto) 1.7 K/uL (1.3-3.6) Monocytes # (Auto) 0.5 K/uL (0.3-1.0) Eosinophils # (Auto) 0.1 K/uL (0.0-0.5) Basophils # (Auto) 0.1 K/uL (0.0-0.1) Nucleated RBC Absolute Count (auto) 0.01 K/uL Prothrombin Time 12.9 seconds (12.0-14.4) Prothromb Time International Ratio 0.97 Activated Partial Thromboplast Time 31 seconds (23-35) Glomerular Filtration Rate Calc 60.0 Calcium Level 9.7 mg/dl (8.4-10.2) Total Bilirubin 0.3 mg/dl (0.2-1.3) Aspartate Amino Transf (AST/SGOT) 21 U/L (0-35) Alanine Aminotransferase (ALT/SGPT) 14 U/L (0-56) Alkaline Phosphatase 76 U/L (0-126) Troponin I < 0.012 ng/ml B-Type Natriuretic Peptide 14 pg/ml (0-100) Total Protein 8.1 g/dl (6.3-8.2) Albumin 4.4 g/dl (3.5-5.0) Coagulation Test 04/14/18 12:30 Prothrombin Time 12.9 seconds Prothromb Time International Ratio 0.97 Activated Partial Thromboplast Time 31 seconds EKG/Imaging Imaging FACILITY: [facility] PATIENT NAME: Julia You : 1970 MR: [id number] V: [id number] EXAM DATE: ORDERING PHYSICIAN: ANIA CEBALLOS TECHNOLOGIST: Location: [facility] Patient: Julia You : 1970 Visit/Account:[id number] Date of Sevice: 04/14/2018 CT angiogram chest with contrast Indication: Coughing up dark sputum. Comparison: None available. Technique: Axial CT images are obtained through the chest after administration of 85 mL Isovue 370 IV contrast. Reformatted coronal and sagittal images were reviewed as well as coronal MIP images. One of the following dose optimization techniques was utilized in the performance of this exam: automated exposure control; adjustment of the mA and/or kV according to the patient's size; or use of an iterative reconstruction technique. Specific details can be referenced in the facility's radiology CT exam operational policy. FINDINGS: No evidence of filling defect within the pulmonary vasculature to suggest pulmonary embolus. Heart is upper limits normal size without pericardial effusion. Mild coronary artery calcifications. Aorta shows no aneurysm or dissection. The mediastinum and hilar regions show no enlarged lymph nodes or abnormal density. The medial aspect of the right lower lobe does show a ill-defined interstitial opacity measuring proximally 1.5 x 1.6 x 2.5 cm without well-defined nodule. No other focal interstitial opacity. Minimal scarring is seen in the anterior aspect of the right lower lobe. No discrete nodules. No consolidations, pleural effusion or pneumothorax. Airways are clear. Bony structures show no acute fracture or aggressive bony lesions. Degenerative change seen spine. Chest wall shows no enlarged axillary lymph nodes or masses. Limited views of the upper abdomen are unremarkable. IMPRESSION: 1. No evidence of pulmonary embolus. 2. The medial aspect of the right lower lobe does show a ill-defined interstitial opacity without discrete nodule at this time. This may represent a focal area of pneumonia. However suggest a follow-up chest CT in 3 months to evaluate for clearing or other etiologies such as underlying nodule. Report Dictated By: Jd Felipe at 04/14/2018 1:33 PM Report E-Signed By: Jd Felipe at 04/14/2018 1:45 PM WSN:[id number] ED Course/Re-evaluation ED Course 04/14/2018 1:55:[address] scan of the chest was negative for pulmonary embolism however remarkable for suspected right lower lobe pneumonia. We'll treat with antibiotics. Decision to Disposition Date: Apr 14, 2018 Decision to Disposition Time: 14:06 Depart Departure Latest Vital Signs Impression: Primary Impression: Pneumonia Condition: Improved Disposition: HOME OR SELF-CARE Referrals: KALINA FLANAGAN MD Follow up in 2 days if symptoms do not improve; also you will require a follow up imaging study of your chest in 3 months to be sure that the pneumonia has improved New Scripts Azithromycin (ZITHROMAX) 250 Mg Tablet 1 TAB PO QDAY for 4 Days, #4 TAB 0 Refills first dose on 04/15/18 Prov: ANIA CEBALLOS MD 04/14/18 Patient Instructions: Community Acquired Pneumonia (ED) Problem Qualifiers Primary Impression: Pneumonia Pneumonia type: due to unspecified organism Laterality: right Lung location: lower lobe of lung Qualified Codes: J18.1 - Lobar pneumonia, unspecified organism ANIA CEBALLOS MD Apr 14, 2018 12:10
[2018-04-14] MEDS ORDERED: TRAM-420 PO (12:24)
[2018-04-14] MEDS ORDERED: NS(*) 0.9% 1000 ML BAG 1,000 ML IV ONE (12:36)
--- NOTE | 2018-04-14 12:45 | EKG ---
FACILITY: [facility] PATIENT NAME: FRANK DE : [id number] MR: [id number] V: [id number] EXAM DATE: ORDERING PHYSICIAN: ANIA CEBALLOS TECHNOLOGIST: CJ Test Reason : ER Blood Pressure : / mmHG Vent. Rate : 074 BPM Atrial Rate : 074 BPM P-R Int : 212 ms QRS Dur : 086 ms QT Int : 404 ms P-R-T Axes : 055 003 054 degrees QTc Int : 448 ms Sinus rhythm with 1st degree AV block Otherwise normal ECG When compared with ECG of 03-APR-2018 03:46, No significant change was found Confirmed by Suman Canseco ([id number]) on 04/14/2018 3:31:26 PM Referred By: TUCKER Confirmed By:Suman Wiley
[2018-04-14 12:47] LABS: PLATELET COUNT, AUTOMATED 239 K/uL (150-450)
[2018-04-14 12:51] LABS: INR 0.97
[2018-04-14] MEDS ORDERED: NS(*) 0.9% 50 ML BAG 50 ML ONE (13:05)
[2018-04-14] MEDS ORDERED: IOPAMIDOL 76% 50 ML INFUS BTL 100 ML ONE (13:05)
--- NOTE | 2018-04-14 13:49 | RADIOLOGY IMAGING REPORT ---
[place] [facility] Julia You : 1970 MR: [id number] V: [id number] EXAM DATE: ORDERING PHYSICIAN: ANIA CEBALLOS TECHNOLOGIST: Location: Patient: Julia You : 1970 Visit/Account:[id number] Date of Sevice: 04/14/2018 CT angiogram chest with contrast Indication: Coughing up dark sputum. Comparison: None available. Technique: Axial CT images are obtained through the chest after administration of 85 mL Isovue 370 IV contrast. Reformatted coronal and sagittal images were reviewed as well as coronal MIP images. One of the following dose optimization techniques was utilized in the performance of this exam: auto mated exposure control; adjustment of the mA and/or kV according to the patient's size; or use of an iterative reconstruction technique. Specific details can be referenced in the facility's radiology C T exam operational policy. FINDINGS: No evidence of filling defect within the pulmonary vasculature to suggest pulmonary embolus. Heart is upper limits normal size without pericardial effusion. Mild coronary artery calcifications. Aorta shows no aneurysm or dissection. The mediastinum and hilar regions show no enlarged lymph nodes or abnormal density. The medial aspect of the right lower lobe does show a ill-defined interstitial opacity measuring prox imally 1.5 x 1.6 x 2.5 cm without well-defined nodule. No other focal interstitial opacity. Minimal s carring is seen in the anterior aspect of the right lower lobe. No discrete nodules. No consolidation s, pleural effusion or pneumothorax. Airways are clear. Bony structures show no acute fracture or aggressive bony lesions. Degenerative change seen spine. Ch est wall shows no enlarged axillary lymph nodes or masses. Limited views of the upper abdomen are unremarkable. IMPRESSION: 1. No evidence of pulmonary embolus. 2. The medial aspect of the right lower lobe does show a ill-defined interstitial opacity without dis crete nodule at this time. This may represent a focal area of pneumonia. However suggest a follow-up chest CT in 3 months to evaluate for clearing or other etiologies such as underlying nodule. Report Dictated By: Jd Felipe at 04/14/2018 1:33 PM Report E-Signed By: Jd Felipe at 04/14/2018 1:45 PM WSN:[id number]
[2018-04-14] MEDS ORDERED: cefTRIAXone 1 GM VIAL IVP ONE (13:55)
[2018-04-14] MEDS ORDERED: AZITHROMYCIN 250 MG TAB PO ONE (13:55)
[2018-04-14] MEDS ORDERED: AZIT-1 PO (13:56)
[2018-04-14 14:00] VITALS: BP 141/83
[2018-04-16] MEDS ORDERED: NAPR500T31 PO (14:39)
[2018-04-16] MEDS ORDERED: TRAZ50TA34 PO (14:39)
== END 2018-04-14 14:16 | disposition home or self-care (01) ==
LOC: ER 12:18
DX: J18.1 Lobar pneumonia, unspecified organism (principal); I44.0 Atrioventricular block, first degree
CPT/HCPCS: 71275; 83880; 84484; 85025; 85610; 85730; 93005; 96361; 96374; 99284; J0696; J7030; J7050; Q0144; Q9967; 82040; 82247; 82310; 82374; 82435; 82565; 82947; 84075; 84132; 84155; 84295; 84450; 84460; 84520

== ENCOUNTER 2018-04-18 11:21 | Outpatient (RCR) | payer MEDICARE, MEDICAID ==
[2018-04-04 14:43] VITALS: BP 116/76
[2018-04-04 15:58] LABS: PLATELET COUNT, AUTOMATED 232 K/uL (150-450)
--- NOTE | 2018-04-04 19:52 | [facility] ONCOLOGY NOTE ---
EVENT DATE: April 04, 2018 REFERRING PHYSICIAN Rosa Blackmon DNP REASON FOR CONSULTATION Establishment of care for a patient with a history of CML. HEMATOLOGY/ONCOLOGY HISTORY Patient is a 47-year-old female who was diagnosed four years ago as per patient in [place] with CML and she was put on treatment with chemotherapy as per patient, but she is not currently on any treatment. Patient also has a history of hemorrhagic stroke in March 2017. She has also a history of hypertension, bipolar disorder, diabetes, Brea syndrome. She had a blood count which showed white count 17.5, hemoglobin 14.2, hematocrit 45.3, platelets 199,000. MCV was 78.2. A1c was 14.5, and no left shift in her CBC. Patient was referred for establishment of care for her CML. Unfortunately, there are not any records from her previous cancer center in [place]. PAST MEDICAL HISTORY 1. Deaf left ear. 2. Blind left eye. 3. Hypertension. 4. Hemorrhagic stroke in 2018 in March. 5. Bipolar disorder. 6. Diabetes mellitus. 7. CML. 8. Brea syndrome. PAST SURGICAL HISTORY 1. She had three back surgeries. 2. Hysterectomy. 3. Tracheostomy when she had her stroke. 4. Splenectomy. SOCIAL HISTORY Patient is single with no children. She is on disability. Denies any abuse of tobacco, alcohol, or drugs, but she drinks very occasionally. FAMILY HISTORY Maternal grandmother with breast cancer. Sister with pancreatic cancer. Mother had skin cancer. CURRENT MEDICATIONS 1. Vitamin D 50,000 units every week. 2. Atorvastatin 40 mg daily. 3. Lisinopril 40 mg daily. 4. Amlodipine 10 mg daily. 5. Carvedilol 3.125 mg twice daily. ALLERGIES CODEINE which causes her skin to turn red as per patient. REVIEW OF SYSTEMS CONSTITUTIONAL: No appetite or weight change. No fever or chills. She has sweating. No recent infection. HEENT: Ears: No tinnitus or hearing problem. Nose: She has nasal discharge and epistaxis. Throat: No sore throat or mouth ulcers. Eyes: No diplopia or visual changes. RESPIRATORY: No shortness of breath. She has cough with expectoration. No hemoptysis. CARDIOVASCULAR: No chest pain, orthopnea, or paroxysmal nocturnal dyspnea (PND). No edema. No palpitations. GASTROINTESTINAL: No nausea or vomiting. No diarrhea. She has constipation. No change in bowel movements. No heartburn or swallowing difficulties. No abdominal pain. No jaundice. No hematemesis, melena, or rectal bleeding. GENITOURINARY: No hematuria or dysuria. MUSCULOSKELETAL: She has pain all over. She has left wrist lockup sometimes. NEUROLOGICAL: No tingling or numbness in the hands or feet. She has occasional headache. No convulsions. HEMATOLOGIC/LYMPHATIC: No bleeding. She bruises easily. No weakness or fatigue. No enlarged lymph nodes. SKIN: No skin rash or lumps. PSYCHIATRIC: No anxiety or depression. PHYSICAL EXAMINATION GENERAL: Looks stable. Well developed, well nourished, and in no acute distress. VITAL SIGNS: Blood pressure 116/76, pulse 73 per minute, respirations 16 per minute, temperature 97.3, pulse ox 99% on room air. HEENT: Head: Atraumatic. No sinus tenderness to palpation. Eyes: No icterus or conjunctivitis. Mouth and throat: No oral thrush or mucositis. NECK: Supple. No cervical or supraclavicular lymphadenopathy. LUNGS: Clear to auscultation and percussion bilaterally. HEART: Regular rate and rhythm. No gallops, murmurs, clicks, or rubs. ABDOMEN: Soft and lax. No tenderness. No hepatosplenomegaly. No masses. EXTREMITIES: No cyanosis, clubbing, or edema. LYMPHATICS: No peripheral lymphadenopathy. NEUROLOGICAL: Conscious, alert, and oriented times three. No focal motor or sensory deficits. PSYCHIATRIC: Mood and affect appear normal. SKIN: No skin rash, bruise, or purpuric eruption. ASSESSMENT 1. History of chronic myelogenous leukemia as per patient, and the patient is not on any treatment currently which is unusual with chronic myelogenous leukemia. Patient has been treated in [place], and I am planning to get the records from [place]. In the meantime, I am planning to check her CBC, quantitative PCR for BCR-ABL rearrangement, and I will check also LAP score and C-reactive protein, erythrocyte sedimentation rate, and fibrinogen level. I will see the patient after the above to decide about further evaluation and management. 2. Microcytosis. I plan to investigate with her next visit. PLAN 1. CBC. 2. Quantitative PCR for BCR-ABL transcript. 3. LAP score. 4. C-reactive protein. 5. ESR. 6. Fibrinogen level. 7. Patient to return after the above for further evaluation and management. 8. Old records from [facility]. STEPHANYD
[~2018-04-18] VITALS: Ht 147.3 cm; Wt 68.7 kg
[~2018-04-18 11:21] MED LIST changes: +AZIT-1 PO; +NAPR500T31 PO; +TRAM-420 PO
[2018-04-18 11:35] VITALS: BP 116/79
[2018-04-18] MEDS ORDERED: CHOL10005 PO (11:39)
--- NOTE | 2018-04-18 13:38 | EL-TARAB[facility] ONCOLOGY NOTE ---
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 HEMATOLOGY/ONCOLOGY HISTORY Patient is a 47-year-old female who was diagnosed four years ago as per patient in [place] with CML and she was put on treatment with chemotherapy as per patient, but she is not currently on any treatment. Patient also has a history of hemorrhagic stroke in March 2017. She has also a history of hypertension, bipolar disorder, diabetes, Brea syndrome. She had a blood count which showed white count 17.5, hemoglobin 14.2, hematocrit 45.3, platelets 199,000. MCV was 78.2. A1c was 14.5, and no left shift in her CBC. Patient was referred for establishment of care for her CML. Unfortunately, there are not any records from her previous cancer center in [place]. Quantitative PCR for BCR-ABL transcript came back positive for major (p210 BCR-ABL1) transcript. HISTORY OF PRESENT ILLNESS Patient is here today for followup of her CML. She caught infection respiratory lately with cough expectoration, nasal discharge, sore throat and she is followed by Dr. Conde, her primary care provider. She has also constipation and achy bones. She has tingling and numbness in her left arm and headache. She bruises easily. She is weak, tired and fatigued. PAST MEDICAL HISTORY 1. Deaf left ear. 2. Blind left eye. 3. Hypertension. 4. Hemorrhagic stroke in 2018 in March. 5. Bipolar disorder. 6. Diabetes mellitus. 7. CML. 8. Brea syndrome. PAST SURGICAL HISTORY 1. She had three back surgeries. 2. Hysterectomy. 3. Tracheostomy when she had her stroke. 4. Splenectomy. SOCIAL HISTORY Patient is single with no children. She is on disability. Denies any abuse of tobacco, alcohol, or drugs, but she drinks very occasionally. FAMILY HISTORY Maternal grandmother with breast cancer. Sister with pancreatic cancer. Mother had skin cancer. CURRENT MEDICATIONS 1. Vitamin D 50,000 units every week. 2. Atorvastatin 40 mg daily. 3. Lisinopril 40 mg daily. 4. Amlodipine 10 mg daily. 5. Carvedilol 3.125 mg twice daily. ALLERGIES CODEINE which causes her skin to turn red as per patient. REVIEW OF SYSTEMS CONSTITUTIONAL: No appetite or weight change. No fever or chills. She has sweating. No recent infection. HEENT: Ears: No tinnitus or hearing problem. Nose: She has nasal discharge. Throat: She has sore throat. Eyes: No diplopia or visual changes. RESPIRATORY: She has cough with expectoration. CARDIOVASCULAR: No chest pain, orthopnea, or paroxysmal nocturnal dyspnea (PND). No edema. No palpitations. GASTROINTESTINAL: She has constipation. GENITOURINARY: No hematuria or dysuria. MUSCULOSKELETAL: She has achy bones. NEUROLOGICAL: She has tingling and numbness in her left arm and occasional headache. HEMATOLOGIC/LYMPHATIC: She bruises easily. She is weak, tired and fatigued. SKIN: No skin rash or lumps. PSYCHIATRIC: No anxiety or depression. PHYSICAL EXAMINATION GENERAL: Looks stable. Well developed, well nourished, and in no acute distress. VITAL SIGNS: Blood pressure 116/79, pulse 70 per minute, respirations 16 per minute, temperature 97.1, pulse ox 97% on room air. HEENT: Head: Atraumatic. No sinus tenderness to palpation. Eyes: No icterus or conjunctivitis. Mouth and throat: No oral thrush or mucositis. NECK: Supple. No cervical or supraclavicular lymphadenopathy. LUNGS: Clear to auscultation and percussion bilaterally. HEART: Regular rate and rhythm. No gallops, murmurs, clicks, or rubs. ABDOMEN: Soft and lax. No tenderness. No hepatosplenomegaly. No masses. EXTREMITIES: No cyanosis, clubbing, or edema. LYMPHATICS: No peripheral lymphadenopathy. NEUROLOGICAL: Conscious, alert, and oriented times three. No focal motor or sensory deficits. PSYCHIATRIC: Mood and affect appear normal. SKIN: No skin rash, bruise, or purpuric eruption. DIAGNOSTIC DATA CBC showed white count 16.1, hemoglobin 14.7, hematocrit 44.2, platelets 239,000. MCV was 76. ANC was 13.7. Chem panel totally normal except BUN 21. Quantitative PCR for BCR-ABL transcript came back positive for BCR-ABL1 major (p210) with BCR-ABL international scale 25.9536%. Her minor BCR-ABL burrer marker axle with p190 was negative. ASSESSMENT 1. Chronic myelogenous leukemia was positive. BCR-ABL major (b210) with international scale 25.9536%. Patient does not have any treatment for a year and, as per patient, she was told when she achieved complete remission to stop the medication. Patient has social issues for buying the drug and for this reason I am trying to involve the social worker psychiatric to work with her to get the drug. I am planning to start her on Gleevec 400 mg daily and I will see her again in three months with CBC, chem panel, LDH, uric acid and quantitative PCR for BCR-ABL1 major (p210). I explained that to the patient and her mother. They are agreeable with the plan of management. PLAN 1. Gleevec 400 mg daily. 2. Patient to return in three months with CBC, chem panel, LDH, uric acid and quantitative BCR for BCR-ABL1 transcript major (p210). 3. Patient to contact us for any new concerns or complaints. MTDD
[2018-04-19] MEDS ORDERED: ESCI10TA8 PO (09:16)
[2018-04-22] MEDS ORDERED: TRAZ50TA34 PO (13:59)
[2018-04-22] MEDS ORDERED: NAPR500T31 PO (13:59)
[2018-04-26] MEDS ORDERED: TRAZ50TA34 PO (09:40)
--- NOTE | 2018-05-07 12:53 | NUR ---
NATASHA Jeter met with pt to sign financial assistance application for [facility]. She had questions regarding the medicaid process for the community choices waiver, NATASHA jeter explained the process and she stated she understood now and would follow up on assessment. She reported she had received a call from [facility] (in [place]) that her prescription would be delivered tomorrow. NATASHA jeter asked for her to follow up tomorrow to make sure medication was received
[2018-05-08] MEDS ORDERED: TASIGNA PO (10:02)
== END 2018-05-08 07:11 | disposition home or self-care (01) ==
LOC: ONC 11:21
PROVIDERS: ATTEND Internal Medicine Hematology
DX: C92.10 Chronic myeloid leukemia, BCR/ABL-positive, not having achieved remission (principal); R71.8 Other abnormality of red blood cells; Q93.89 Other deletions from the autosomes; Z92.21 Personal history of antineoplastic chemotherapy; I10 Essential (primary) hypertension; E11.9 Type 2 diabetes mellitus without complications; Z86.73 Personal history of transient ischemic attack (TIA), and cerebral infarction without residual deficits; F31.9 Bipolar disorder, unspecified; R53.83 Other fatigue; R51 Headache; R20.2 Paresthesia of skin; K59.00 Constipation, unspecified
CPT/HCPCS: 81206; 81207; 85025; 85384; 85540; 85651; 86140; G0463; 99202; 99212

== ENCOUNTER → 2018-04-25 | Outpatient (CLI) | payer MEDICARE, MEDICAID ==
[~2018-04-25] MED LIST changes: +CHOL10005 PO; +ESCI10TA8 PO
--- NOTE | 2018-04-25 12:39 | RADIOLOGY IMAGING REPORT ---
FACILITY: [facility] PATIENT NAME: Julia You : 1970 MR: [id number] V: [id number] EXAM DATE: ORDERING PHYSICIAN: KALINA FLANAGAN TECHNOLOGIST: Location: [facility] [place] Patient: Julia You : 1970 Visit/Account:[id number] Date of Sevice: 04/25/2018 Technique: CHEST PA LAT HISTORY: see dx COMPARISON: CTA chest 04/14/2018, chest radiograph 04/03/2018 Findings: The lungs are clear. No pleural effusion or pneumothorax. The previously noted interstiti al opacity within the right lower lobe is not visualized radiographically. The cardiomediastinal lashell houette is normal. Impression: 1. No acute cardiopulmonary process. Report Dictated By: Jona Moya DO at 04/25/2018 12:31 PM Report E-Signed By: Jona Moya DO at 04/25/2018 12:33 PM WSN:[id number]
== END ==
LOC: RAD 11:41
PROVIDERS: ATTEND Internal Medicine
DX: J18.9 Pneumonia, unspecified organism (principal)
CPT/HCPCS: 71046

== ENCOUNTER 2018-05-12 16:53 | Emergency (ER) | payer MEDICARE, MEDICAID ==
[~2018-05-12 16:53] MED LIST changes: -CEF300 PO; -CEFU500T10 PO
[2018-05-12 16:56] VITALS: BP 121/72
--- NOTE | 2018-05-12 17:32 | ER Report ---
History and Physical Time Seen By MD: 17:10 Hx. of Stated Complaint: STARTED TISIGNA AND "I DONT FEEL RIGHT". C/O FATIGUE, CHILLS, HEADACHE. (TIFFANIE SUAREZ DO) HPI/ROS CHIEF COMPLAINT: I dont feel well HISTORY OF PRESENT ILLNESS: Pt here for evaluation of not feeling well. Pt states that she started on a chemo drug for CLL. Since she started she has not felt well. Pt states that she has had severe fatigue. Pt states that she has had chills then felt hot, face is puffy, headaches, decreased appetite, runny nose, sorethroat. Pt also states she has had chest heaviness for a week. CP is constant and nothing helps. no sob. Pt very tearful. REVIEW OF SYSTEMS: Constitutional: + fever, + chills. Eyes: No discharge. ENT: + sore throat. Cardiovascular: + chest pain, no palpitations. Respiratory: No cough, no shortness of breath. Gastrointestinal: No abdominal pain, no vomiting. Genitourinary: No hematuria. Musculoskeletal: No back pain. Skin: No rashes. Neurological: + headache. (TIFFANIE SUAREZ DO) Allergies: Coded Allergies: codeine (Verified Allergy, Unknown, 04/14/18) Home Meds Active Scripts Cefuroxime Axetil (CEFUROXIME) 500 Mg Tablet, 500 MG PO BID for infection, #14 TAB Prov:CELESTINA BIRCH DO 05/12/18 Trazodone Hcl (TRAZODONE HCL) 50 Mg Tablet, 1 TAB PO QHS PRN for diff sleeping, #30 TAB 2 Refills Prov:KALINA FLANAGAN MD 04/26/18 Cholecalciferol (Vitamin D3) (VITAMIN D3) 50,000 Unit Capsule, 1 CAP PO QWEEK, #8 CAPSULE 1 Refill Prov:KALINA FLANAGAN MD 04/01/18 Atorvastatin Calcium (ATORVASTATIN CALCIUM) 40 Mg Tablet, 1 TAB PO QDAY for 30 Days, #30 TAB 3 Refills Prov:KALINA FLANAGAN MD 04/01/18 Lisinopril (LISINOPRIL) 40 Mg Tablet, 40 MG PO QDAY, #30 TAB 5 Refills Prov:KALINA FLANAGAN MD 04/01/18 Amlodipine Besylate (AMLODIPINE BESYLATE) 10 Mg Tablet, 1 TAB PO QDAY, #30 TAB 5 Refills Prov:KALINA FLANAGAN MD 04/01/18 Carvedilol (CARVEDILOL) 3.125 Mg Tab, 3.125 MG PO BID, #30 TAB 5 Refills Prov:KALINA FLANAGAN MD 04/01/18 Reported Medications [Tasigna] No Conflict Check, 300 MG PO BID 100 mg tablets; do not eat 2 hours prior to dose or 1 hour after 05/08/18 Cholecalciferol (Vitamin D3) (VITAMIN D3) 1,000 Unit Tablet, 21398 UNIT PO, TAB 04/18/18 Tramadol Hcl (TRAMADOL HCL) 50 Mg Tablet, 50 MG PO Q6H PRN for PAIN, TAB 04/14/18 Past Medical/Surgical History Pmhx: CML, DM, bipolar, deaf in L ear/eye,htn, hemorrhagic CVA, pe Pshx: Hyster, spinal surgery, splenectomy (TIFFANIE SUAREZ DO) Reviewed Nurses Notes: Yes (TIFFANIE SUAREZ DO) Smoking Status: Never Smoker (TIFFANIE SUAREZ DO) Constitutional Vital Sign - Last 24 Hours 05/12/18 16:56 Temp 98.8 Pulse 67 Resp 20 B/P (MAP) 121/72 Pulse Ox 91 O2 Delivery Room Air Intake and Output 05/12/18 05/12/18 05/13/18 14:59 22:59 06:59 Intake Total 1000 ml Balance 1000 ml (CELESTINA BIRCH DO) Physical Exam General Appearance: The patient is alert, has no immediate need for airway protection and no signs of toxicity. Eyes: Pupils equal and round no pallor or injection, EOMI ENT: no pharyngeal erythema or exudates, Mucous membranes are moist, TM are nl b/l Respiratory: There are no retractions, lungs are clear to auscultation. Cardiovascular: Regular rate and rhythm. pulses are equal and symmetrical Gastrointestinal: Abdomen is soft and non tender, no masses, bowel sounds normal, no guarding, no rigidity or rebound Neurological: Cranial nerves II-XII grossly intact, no sensory or motor loss Skin: Warm and dry, no rashes. Musculoskeletal: Neck is supple non tender, no vertebral tenderness Extremities are non tender, nonswollen and have full range of motion. DIFFERENTIAL DIAGNOSIS: After history and physical exam differential diagnosis was considered for reaction to the Tasigna, acs, dehydration, influenza, mono, strep, sepsis (LAURORA,TIFFANIE V DO) Medical Decision Making Data Points Result Diagram: 05/12/18 1703 05/12/18 1703 Laboratory Hematology Test 05/12/18 17:03 05/12/18 17:21 05/12/18 19:20 Red Blood Count 5.26 M/uL (4.17-5.56) Mean Corpuscular Volume 77.0 fL (80.0-96.0) Mean Corpuscular Hemoglobin 25.9 pg (26.0-33.0) Mean Corpuscular Hemoglobin Concent 33.7 g/dL (32.0-36.0) Red Cell Distribution Width 17.6 % (11.5-14.5) Mean Platelet Volume 9.6 fL (7.2-11.1) Neutrophils (%) (Auto) 84.3 % (39.4-72.5) Lymphocytes (%) (Auto) 11.6 % (17.6-49.6) Monocytes (%) (Auto) 3.6 % (4.1-12.4) Eosinophils (%) (Auto) 0.3 % (0.4-6.7) Basophils (%) (Auto) 0.2 % (0.3-1.4) Nucleated RBC Relative Count (auto) 0.0 /100WBC Neutrophils # (Auto) 18.3 K/uL (2.0-7.4) Lymphocytes # (Auto) 2.5 K/uL (1.3-3.6) Monocytes # (Auto) 0.8 K/uL (0.3-1.0) Eosinophils # (Auto) 0.1 K/uL (0.0-0.5) Basophils # (Auto) 0.0 K/uL (0.0-0.1) Nucleated RBC Absolute Count (auto) 0.00 K/uL Peripheral Blood Smear Yes Y/N Sodium Level 138 mmol/L (137-145) Potassium Level 4.3 mmol/L (3.5-5.0) Chloride Level 104 mmol/L (98-107) Carbon Dioxide Level 24 mmol/L (22-31) Blood Urea Nitrogen 25 mg/dl (7-18) Creatinine 1.10 mg/dl (0.52-1.04) Glomerular Filtration Rate Calc 53.7 Random Glucose 151 mg/dl (75-110) Calcium Level 9.0 mg/dl (8.4-10.2) Total Bilirubin 1.3 mg/dl (0.2-1.3) Aspartate Amino Transf (AST/SGOT) 21 U/L (0-35) Alanine Aminotransferase (ALT/SGPT) 31 U/L (0-56) Alkaline Phosphatase 83 U/L (0-126) Troponin I < 0.012 ng/ml Total Protein 7.7 g/dl (6.3-8.2) Albumin 4.5 g/dl (3.5-5.0) Monoscreen Negative (NEGATIVE) Group A Streptococcus (PCR) Negative (NEGATIVE) Influenza Virus Type A (PCR) Negative (NEGATIVE) Influenza Virus Type B (PCR) Negative (NEGATIVE) Urine Color Yellow Urine Clarity Cloudy Urine pH 5.0 pH (4.8-9.5) Urine Specific Childs 1.018 Urine Protein 30 mg/dL (NEGATIVE) Urine Glucose (UA) Negative mg/dL (NEGATIVE) Urine Ketones Negative mg/dL (NEGATIVE) Urine Blood Small (NEGATIVE) Urine Nitrite Negative (NEGATIVE) Urine Bilirubin Negative (NEGATIVE) Urine Urobilinogen 4.0 mg/dL (0.2-1.9) Urine Leukocyte Esterase Moderate (NEGATIVE) Urine RBC 52 /HPF (0-2/HPF) Urine WBC 225 /HPF (0-5/HPF) Urine WBC Clumps Mod /HPF Urine Squamous Epithelial Cells Many /LPF (</=FEW) Urine Bacteria Few /HPF (NONE-FEW) Urine Mucus None /HPF (NONE-FEW) Chemistry Test 05/12/18 17:03 05/12/18 17:21 05/12/18 19:20 White Blood Count 21.7 k/uL (4.5-11.0) Red Blood Count 5.26 M/uL (4.17-5.56) Hemoglobin 13.6 g/dL (12.0-16.0) Hematocrit 40.5 % (34.0-47.0) Mean Corpuscular Volume 77.0 fL (80.0-96.0) Mean Corpuscular Hemoglobin 25.9 pg (26.0-33.0) Mean Corpuscular Hemoglobin Concent 33.7 g/dL (32.0-36.0) Red Cell Distribution Width 17.6 % (11.5-14.5) Platelet Count 240 K/uL (150-450) Mean Platelet Volume 9.6 fL (7.2-11.1) Neutrophils (%) (Auto) 84.3 % (39.4-72.5) Lymphocytes (%) (Auto) 11.6 % (17.6-49.6) Monocytes (%) (Auto) 3.6 % (4.1-12.4) Eosinophils (%) (Auto) 0.3 % (0.4-6.7) Basophils (%) (Auto) 0.2 % (0.3-1.4) Nucleated RBC Relative Count (auto) 0.0 /100WBC Neutrophils # (Auto) 18.3 K/uL (2.0-7.4) Lymphocytes # (Auto) 2.5 K/uL (1.3-3.6) Monocytes # (Auto) 0.8 K/uL (0.3-1.0) Eosinophils # (Auto) 0.1 K/uL (0.0-0.5) Basophils # (Auto) 0.0 K/uL (0.0-0.1) Nucleated RBC Absolute Count (auto) 0.00 K/uL Peripheral Blood Smear Yes Y/N Glomerular Filtration Rate Calc 53.7 Calcium Level 9.0 mg/dl (8.4-10.2) Total Bilirubin 1.3 mg/dl (0.2-1.3) Aspartate Amino Transf (AST/SGOT) 21 U/L (0-35) Alanine Aminotransferase (ALT/SGPT) 31 U/L (0-56) Alkaline Phosphatase 83 U/L (0-126) Troponin I < 0.012 ng/ml Total Protein 7.7 g/dl (6.3-8.2) Albumin 4.5 g/dl (3.5-5.0) Monoscreen Negative (NEGATIVE) Group A Streptococcus (PCR) Negative (NEGATIVE) Influenza Virus Type A (PCR) Negative (NEGATIVE) Influenza Virus Type B (PCR) Negative (NEGATIVE) Urine Color Yellow Urine Clarity Cloudy Urine pH 5.0 pH (4.8-9.5) Urine Specific Childs 1.018 Urine Protein 30 mg/dL (NEGATIVE) Urine Glucose (UA) Negative mg/dL (NEGATIVE) Urine Ketones Negative mg/dL (NEGATIVE) Urine Blood Small (NEGATIVE) Urine Nitrite Negative (NEGATIVE) Urine Bilirubin Negative (NEGATIVE) Urine Urobilinogen 4.0 mg/dL (0.2-1.9) Urine Leukocyte Esterase Moderate (NEGATIVE) Urine RBC 52 /HPF (0-2/HPF) Urine WBC 225 /HPF (0-5/HPF) Urine WBC Clumps Mod /HPF Urine Squamous Epithelial Cells Many /LPF (</=FEW) Urine Bacteria Few /HPF (NONE-FEW) Urine Mucus None /HPF (NONE-FEW) Urinalysis Test 05/12/18 19:20 Urine Color Yellow Urine Clarity Cloudy Urine pH 5.0 pH (4.8-9.5) Urine Specific Childs 1.018 Urine Protein 30 mg/dL (NEGATIVE) Urine Glucose (UA) Negative mg/dL (NEGATIVE) Urine Ketones Negative mg/dL (NEGATIVE) Urine Blood Small (NEGATIVE) Urine Nitrite Negative (NEGATIVE) Urine Bilirubin Negative (NEGATIVE) Urine Urobilinogen 4.0 mg/dL (0.2-1.9) Urine Leukocyte Esterase Moderate (NEGATIVE) Urine RBC 52 /HPF (0-2/HPF) Urine WBC 225 /HPF (0-5/HPF) Urine WBC Clumps Mod /HPF Urine Squamous Epithelial Cells Many /LPF (</=FEW) Urine Bacteria Few /HPF (NONE-FEW) Urine Mucus None /HPF (NONE-FEW) (CELESTINA BIRCH DO) ED Course/Re-evaluation Clinical Indication for ER IV: IV Access ED Course check labs including blood cultures Reviewed Tasigna adverse effects. It an cause the myalgia, fever, fatigue and headaches pt is feeling. will await labs 05/12/2018 7:00:29 pm PT white count is elevated but similar to priors. Pt does not have strep or flu. EKG did not show heart attack or arrhythmia. awaiting troponin. Giving fluids for some dehydration. 05/12/2018 7:20:28 pm Troponin is normal. Is suspect pt symptoms are related to her new medication. I left a message with the cancer center to call patient tomorrow. Pt states she is not to be seen until July. I explained she needs to talk to them tomorrow to decide about her medications. Blood cultures were sent off in case of infection. It is better for patient not to be in the hospital due to risk of infection in hospital. PT signed out to Dr. birch pending urine results as well as fluid. Decision to Disposition Date: May 12, 2018 Decision to Disposition Time: 19:23 (TIFFANIE SUAREZ DO) ED Course 05/12/2018 8:13:20 pm care assumed at shift change with diagnostic. Urinalysis pending. Patient was receiving IV fluid hydration for her weakness. Patient's urinalysis returned positive for infection. A urinary culture was ordered. She was given 1 g of Rocephin. Decision to Disposition Date: May 12, 2018 Decision to Disposition Time: 20:12 (CELESTINA BIRCH DO) Depart Departure Latest Vital Signs Vital Signs Date Time Temp Pulse Resp B/P (MAP) Pulse Ox O2 Delivery O2 Flow Rate FiO2 05/12/18 16:56 98.8 67 20 121/72 91 Room Air (CELESTINA BIRCH DO) Impression: Primary Impression: Fatigue Additional Impressions: Myalgia Headache Medication side effects Urinary tract infection Condition: Improved Disposition: HOME OR SELF-CARE New Scripts Cefuroxime Axetil (CEFUROXIME) 500 Mg Tablet 500 MG PO BID for infection, #14 TAB Prov: CELESTINA BIRCH DO 05/12/18 Patient Instructions: Adverse Drug Reaction (ED), Urinary Tract Infection in Women (ED) Additional Instructions: We sent off urine and blood cultures. If any bacteria grows we will call you. I suspect some of your symptoms are due to your medication, Tasigna. Call oncology unit tomorrow to speak with someone to discuss if you should continue or if there are other options. Follow-up with oncology clinic tomorrow Return for any concerns. Problem Qualifiers Primary Impression: Fatigue Fatigue type: due to exposure Encounter type: initial encounter Qualified Codes: T73.2XXA - Exhaustion due to exposure, initial encounter Additional Impressions: Headache Headache type: unspecified Headache chronicity pattern: acute headache Intractability: not intractable Qualified Codes: R51 - Headache Urinary tract infection Urinary tract infection type: acute cystitis Hematuria presence: with hematuria Qualified Codes: N30.01 - Acute cystitis with hematuria TIFFANIE SUAREZ DO May 12, 2018 17:32 CELESTINA BIRCH DO May 12, 2018 20:14
[2018-05-12 18:38] LABS: PLATELET COUNT, AUTOMATED 240 K/uL (150-450)
[2018-05-12] MEDS ORDERED: NS(*) 0.9% 1000 ML BAG 1,000 ML IV ONE (18:50)
[2018-05-12] MEDS ORDERED: CEFU500T10 PO (20:15)
[2018-05-12] MEDS ORDERED: cefTRIAXone 1 GM VIAL IVP ONE (20:15)
--- NOTE | 2018-05-13 08:23 | EKG ---
FACILITY: [facility] [place] PATIENT NAME: FRANK DE : [id number] MR: [id number] V: [id number] EXAM DATE: ORDERING PHYSICIAN: UNIQUE PATEL TECHNOLOGIST: BYRON Varela Reason : Blood Pressure : / mmHG Vent. Rate : 070 BPM Atrial Rate : 070 BPM P-R Int : 208 ms QRS Dur : 090 ms QT Int : 430 ms P-R-T Axes : 054 -11 050 degrees QTc Int : 464 ms Normal sinus rhythm Low voltage QRS Borderline ECG When compared with ECG of 09-MAY-2018 11:30, No significant change was found Confirmed by SATISH AVILES ([id number]) on 05/13/2018 11:20:02 AM Referred By: Confirmed By:SATISH AVILES
[2018-05-14] MEDS ORDERED: CEF300 PO (16:42)
== END 2018-05-12 20:33 | disposition home or self-care (01) ==
LOC: ER 16:56
DX: N30.01 Acute cystitis with hematuria (principal); T73.2XXA Exhaustion due to exposure, initial encounter; R51 Headache; M79.10 Myalgia, unspecified site
CPT/HCPCS: 36415; 81001; 84484; 85025; 86308; 87040; 87088; 87502; 87653; 93005; 96361; 96374; 99283; J0696; J7030; 82040; 82247; 82310; 82374; 82435; 82565; 82947; 84075; 84132; 84155; 84295; 84450; 84460; 84520

== ENCOUNTER → 2018-05-12 | Outpatient (CLI) | payer MEDICARE, MEDICAID ==
[~2018-05-12] MED LIST changes: +CEF300 PO; +CEFU500T10 PO; +TASIGNA PO
== END ==
LOC: AMB 16:27
PROVIDERS: ATTEND Nurse Practitioner
DX: R07.89 Other chest pain (principal); R00.0 Tachycardia, unspecified; M25.551 Pain in right hip
CPT/HCPCS: A0425; A0427

== ENCOUNTER → 2018-05-21 | Outpatient (CLI) | payer MEDICARE, MEDICAID ==
[~2018-05-21] MED LIST changes: +CEF300 PO; +CEFU500T10 PO
== END ==
LOC: AUD 05-20 11:30
PROVIDERS: ATTEND Otolaryngology
DX: H90.3 Sensorineural hearing loss, bilateral (principal)
CPT/HCPCS: 92557

== ENCOUNTER → 2018-06-28 | Outpatient (CLI) | payer MEDICARE, MEDICAID ==
[~2018-06-28] MED LIST changes: +ALBU8.5H IH
[2018-06-28 09:21] LABS: PLATELET COUNT, AUTOMATED 219 K/uL (150-450)
--- NOTE | 2018-06-28 10:08 | RADIOLOGY IMAGING REPORT ---
FACILITY: [facility] [place] PATIENT NAME: Julia You : 1970 MR: [id number] V: [id number] EXAM DATE: [id number] ORDERING PHYSICIAN: JANICE GRIJALVA TECHNOLOGIST: Location: [facility] Patient: Julia You : 1970 Visit/Account:[id number] Date of Sevice: 06/28/2018 2 VIEWS CHEST INDICATION: Coughing up blood x2 days COMPARISON: 04/25/2018 FINDINGS: Heart size within normal limits. There is no focal infiltrate or lobar consolidation. There is no pneumothorax or pleural effusion. Note is made of cervical fusion hardware. IMPRESSION: 1. No acute cardiopulmonary process. Report Dictated By: Ron Gao MD at 06/28/2018 10:02 AM Report E-Signed By: Ron Gao MD at 06/28/2018 10:03 AM WSN:ALDEN
== END ==
LOC: LAB 09:01
PROVIDERS: ATTEND Nurse Practitioner Primary Care
DX: R04.2 Hemoptysis (principal)
CPT/HCPCS: 36415; 71046; 82040; 82247; 82310; 82374; 82435; 82565; 82947; 84075; 84132; 84155; 84295; 84450; 84460; 84520; 85025; 85379

== ENCOUNTER 2018-08-01 09:52 | Outpatient (RCR) | payer MEDICAID, MEDICARE ==
--- NOTE | 2018-05-08 11:14 | NUR ---
NATASHA rec'd a voicemail indicating a call back from the patient. The pt stated she got a letter from Medicare that was just indicating her medicare number and effective date. NATASHA used this information to complete patient's application for [facility], however the application is not needed anymore. The patients medication is being covered by her Medicare part D plan. Her co-pay is $8.00 a month.
[2018-05-09 11:16] LABS: PLATELET COUNT, AUTOMATED 223 K/uL (150-450)
--- NOTE | 2018-05-10 04:26 | ONCOLOGY CHEMO TEACHING ---
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 A total of 60 minutes was spent with patient and family, 100% of which was qtlc-di-dcar counseling. HISTORY OF PRESENT ILLNESS Patient is here today accompanied by her mother for an oral chemotherapy teaching session for daily Tasigna. She is followed by Dr. Conde, her primary care provider. She has had some constipation and achy bones in the past. She tells me her constipation resolved after using MiraLAX powder. She continues to report feeling occasional weakness, and feeling tired and fatigued. This has been chronic. She also reports occasional tingling and numbness in her left and right arms, which is also intermittent and is not new. ONCOLOGY HISTORY Patient is a 47-year-old female who was diagnosed four years ago as per patient in [place] with CML and she was put on treatment with chemotherapy as per patient, but she is not currently on any treatment. Patient also has a history of hemorrhagic stroke in March 2017. She has also a history of hypertension, bipolar disorder, diabetes, Brea syndrome. She had a blood count which showed white count 17.5, hemoglobin 14.2, hematocrit 45.3, platelets 199,000. MCV was 78.2. A1c was 14.5, and no left shift in her CBC. Patient was referred for establishment of care for her CML. Unfortunately, there are not any records from her previous cancer center in [place]. Quantitative PCR for BCR-ABL transcript came back positive for major (p210 BCR-ABL1) transcript. PAST MEDICAL HISTORY 1. Deaf left ear. 2. Blind left eye. 3. Hypertension. 4. Hemorrhagic stroke in 2018 in March. 5. Bipolar disorder. 6. Diabetes mellitus. 7. CML. 8. Brea syndrome. PAST SURGICAL HISTORY 1. She had three back surgeries. 2. Hysterectomy. 3. Tracheostomy when she had her stroke. 4. Splenectomy. SOCIAL HISTORY Patient is single with no children. She is on disability. Denies any abuse of tobacco, alcohol, or drugs, but she drinks very occasionally. FAMILY HISTORY Maternal grandmother with breast cancer. Sister with pancreatic cancer. Mother had skin cancer. CURRENT MEDICATIONS 1. Vitamin D 50,000 units every week. 2. Atorvastatin 40 mg daily. 3. Lisinopril 40 mg daily. 4. Amlodipine 10 mg daily. 5. Carvedilol 3.125 mg twice daily. ALLERGIES CODEINE which causes her skin to turn red as per patient. DISCUSSION 1. A total of 60 minutes was spent in counseling today, 100% of which was face to face. At today's chemotherapy teaching session we discussed her diagnosis as well as the planned chemotherapy regimen and toxicities associated with nilotinib (Tasigna) 300 mg tablets, one p.o. b.i.d. Handouts of each drug were provided and reviewed in detail. 2. Side effects and toxicities of chemotherapy agents included, but were not limited to: A. Bone marrow suppression, specifically neutropenia. She is instructed to contact our offices with any signs of infection. CBC will be monitored routinely. We discussed common sense approaches including routine hand washing and avoidance of crowds/sick people if neutropenic. B. GI side effects. Discussed the possibility of nausea, vomiting, diarrhea and constipation. She was prescribed antiemetics for home use. If she were to have diarrhea, we recommend Imodium. If she would have constipation, recommended Senna-S or Miralax routinely. Further interventions will be made based on side effects. C. side effects. Discussed the importance of adequate hydration (minimum 8 cups of fluid per day) and emptying the bladder on a regular basis. IV hydration can be scheduled as needed. D. Mouth sores. Recommended salt water or baking soda gargles as needed. E. Skin toxicity. Discussed that chemotherapy was very drying to the skin and mucous membranes. Recommended routine moisturizing as well as sun protection. F. Neurotoxicity. Discussed symptoms of peripheral neuropathy. She will be monitored of these symptoms and will notify us if progressive. G. Alopecia. We discussed that hair thinning is possible, but complete alopecia is not typically seen. This was discussed at length. H. Fatigue. Discussed that this is one of the most common complaints of patients undergoing chemotherapy. We have encouraged her to remain as active as possible, taking frequent rests as needed. I. Reproductive Health: Discussed importance of preventing while on chemotherapy. Discussed control options and fertility preservation. Also, to abstain from sexual intercourse for 2-3 days after chemotherapy administration. Ms. Anaya does have a history positive for hysterectomy. 3. I have instructed the patient to call our office if she is prescribed any new medications. It is recommended that multiple supplements or herbal medications may not be taken as these may interfere with the action of the chemotherapy. 4. Discussed dietary issues associated with chemotherapy including anorexia and changes in taste. A handout of nutrition information is given. 5. Office contact information ([phone]) is given. I have encouraged the patient to call with any issues regarding treatment. 6. A tour of the infusion room is given. Ms. Anaya was provided a packet of information including all of the above. Treatment will begin as soon as patient has drug delivered, and this was apparently attempted to be delivered per [employer]. 7. We also discussed pertinent toxicities or potential side effects related specifically to nilotinib, to include the potential for EKG changes/QT prolongation. Also discussed side effects which included the potential increased effect from her home medications, which are amlodipine, atorvastatin, and trazodone. We discussed signs and symptoms and when to call our office. 8. Baseline EKG will be obtained today right after our visit. 9. She will also have weekly labs drawn to include CBC, CMP, mag weekly throughout cycle #1. MTDD
--- NOTE | 2018-05-10 11:26 | EKG ---
FACILITY: [facility] PATIENT NAME: FRANK DE : [id number] MR: [id number] V: [id number] EXAM DATE: ORDERING PHYSICIAN: SANDY FOOTE TECHNOLOGIST: Test Reason : Blood Pressure : / mmHG Vent. Rate : 067 BPM Atrial Rate : 067 BPM P-R Int : 224 ms QRS Dur : 076 ms QT Int : 396 ms P-R-T Axes : 058 -03 035 degrees QTc Int : 418 ms Sinus rhythm with 1st degree AV block Possible Left atrial enlargement Anterior infarct , age undetermined Abnormal ECG When compared with ECG of 14-APR-2018 12:32, No significant change was found Confirmed by FRANCISCO LUNA ([id number]) on 05/10/2018 7:48:39 PM Referred By: Confirmed By:FRANCISCO LUNA
--- NOTE | 2018-05-10 13:14 | NUR ---
NATASHA was able to verify through [employer] tracking that the pt's Tasigna shipment was delivered and signed for by the patient on 05/09/18.
[2018-05-13 14:33] VITALS: BP 119/77
--- NOTE | 2018-05-14 08:43 | ONCOLOGY FOLLOW UP NOTE ---
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 She believes this and other symptoms are related to recently initiating treatment with Tasigna. She initiated Tasigna on , May 09, 2018. HISTORY OF PRESENT ILLNESS Julia is here today here today with concerns about continuing Tasigna after an ER visit yesterday. She was diagnosed with UTI. She reports initiating Tasigna on , three days ago. She is followed by Dr. Conde, her primary care provider. She has had some constipation and achy bones in the past, and at last visit reported that her constipation had completely resolved after using MiraLAX powder. She reports ongoing occasional weakness and fatigue, which she states has been chronic. She also has occasional tingling and numbness in her left and right arms, which is now intermittent and is not new. Today, she tells me that she began to notice increased fatigue, decreased appetite, reports of a puffy face as well as facial erythema or ruddiness, which she says is "like when you're sick" , along with chest pain, yesterday. She tells me that she had a poor appetite for the last three days or ever since she initiated her first dose with Tasigna. Per records in [facility], patient was treated with IV fluids for mild dehydration, was given a dose of IV Rocephin and was discharged with a prescription for Ceftin. She tells me that she has not yet picked up her prescription. She denies any fevers. She is reporting some abdominal pain, which she says could be "coming from her UTI". She tells me that she also feels quite anxious. She believes that she is even more fatigued and is reporting general arthralgias and myalgias at this time. ONCOLOGY HISTORY Patient is a 47-year-old female who was diagnosed four years ago as per patient in [place] with CML and she was put on treatment with chemotherapy as per patient, but she is not currently on any treatment. Patient also has a history of hemorrhagic stroke in March 2017. She has also a history of hypertension, bipolar disorder, diabetes, Brea syndrome. She had a blood count which showed white count 17.5, hemoglobin 14.2, hematocrit 45.3, platelets 199,000. MCV was 78.2. A1c was 14.5, and no left shift in her CBC. Patient was referred for establishment of care for her CML. Unfortunately, there are not any records from her previous cancer center in [place]. Quantitative PCR for BCR-ABL transcript came back positive for major (p210 BCR-ABL1) transcript. PAST MEDICAL HISTORY 1. Deaf left ear. 2. Blind left eye. 3. Hypertension. 4. Hemorrhagic stroke in 2018 in March. 5. Bipolar disorder. 6. Diabetes mellitus. 7. CML. 8. Brea syndrome. PAST SURGICAL HISTORY 1. She had three back surgeries. 2. Hysterectomy. 3. Tracheostomy when she had her stroke. 4. Splenectomy. SOCIAL HISTORY Patient is single with no children. She is on disability. Denies any abuse of tobacco, alcohol, or drugs, but she drinks very occasionally. FAMILY HISTORY Maternal grandmother with breast cancer. Sister with pancreatic cancer. Mother had skin cancer. CURRENT MEDICATIONS 1. Vitamin D 50,000 units every week. 2. Atorvastatin 40 mg daily. 3. Lisinopril 40 mg daily. 4. Amlodipine 10 mg daily. 5. Carvedilol 3.125 mg twice daily. ALLERGIES CODEINE which causes her skin to turn red as per patient. REVIEW OF SYSTEMS A 12-point review of systems is performed and is negative except as stated above. CONSTITUTIONAL: Patient reports worsening fatigue and arthralgias and generalized myalgias. PSYCH: Patient reports that she feels a bit more anxious than usual. CARDIAC/CHEST: Patient reports some generalized chest discomfort in the mid chest, although denies any shortness of breath. She is aware that cardiac workup was performed while in the ER yesterday. LUNGS: She denies any shortness of breath or wheezes. No dyspnea at rest. PHYSICAL EXAMINATION VITAL SIGNS: Weight 150 pounds, T 97.3 degrees Fahrenheit, BP 119/77, P 74, R 16, oxygen saturation 96% on room air. GENERAL: Patient is a young 46-year old woman who appears to be in no acute distress. 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 EYES: Sclerae anicteric. MOUTH: Moist mucous membranes. NECK: Supple. No palpable adenopathy. No JVD. LUNGS: Revealed diminished breath sounds to auscultation bilaterally. No shortness of breath on exam. Respiratory effort is normal. Chest expansion is symmetrical. CARDIOVASCULAR: Heart rate regular, normal rhythm, 74 beats per minute. No murmurs or gallops. NEURO: Patient is awake, alert and oriented x3. LABORATORY CBC on May 09, 2018: WBC 22.8, ANC 19.8, hemoglobin 13.7, hematocrit 41.6%, platelets 223,000. CMP on May 09, 2018: Sodium normal at 142, potassium normal at 4.5, BUN elevated at 22, creatinine 1.0. LFTs within normal limits. CBC in the ER on May 12, 2018: WBC 21.7, ANC 18.3, hemoglobin 13.6, hematocrit 40.5%, platelets 240,000. UA on May 12, 2018: Moderate leukocytes and trace or small evidence of blood. No ketones. IMPRESSION AND PLAN This is a pleasant 47-year old woman with a history of chronic myelogenous leukemia. She was recently initiated on Tasigna and reports starting her first dose three days ago, on April. She was on Gleevec on the past. She is new to this clinic as she recently moved back to [place]. She follows up with her PCP, Dr. Conde, in regards to her hypertension, Adnrews syndrome, hypercholesterolemia and her depression and bipolar disorder. She does have a history of a hemorrhagic stroke in March 2017. She was seen in the ER yesterday with complaints of generalized fatigue, myalgias, reported increased temperature, cough and chest pain. She also reported some abdominal pain. Today, she tells me she has had lethargy for the last few days and reports a significantly decreased appetite for the last few days, although was able to eat a good breakfast this morning. She felt better after being seen in the ER and being given IV hydration as well as IV antibiotics. She received a dose of Rocephin IV in the ER. She was told in the ER that her symptomatology could be related to recent initiation with Tasigna. Per patient, she took her last dose of Tasigna yesterday evening. She has not taken anything today. She is feeling somewhat better today. She does report some generalized weakness and fatigue as well as some chest pain, although specifically denies any palpitations, syncope or presyncope, dyspnea or shortness of breath. She denies any dyspnea on exertion. She has been afebrile. She is non-toxic appearing today. 1. Chronic myelogenous leukemia. Patient recently initiated Tasigna 300 mg b.i.d. three days ago on May 09, 2018. Her last dose was last night. For now, I have advised the patient to continue to hold this until she is seen later this week in clinic for follow up. She is scheduled for a one-week toxicity check this coming . 2. Urinary tract infection. No labs done today as patient just had these done less than 24 hours ago. Her WBC is similar to white count from CBC on of last week. 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 She was prescribed Ceftin per the ER. We reviewed ER precautions and signs and symptoms of when to call our office. 3. Hydration. Discussed proper hydration in regards to fatigue and her urinary tract infection. She does admit to drinking quite a bit of soda pop. I have asked her to increase fluid intake with water and even sugar-free electrolyte drinks. 4. Patient will continue all of her other home medications to include her Trazodone. 5. Patient will return to clinic later this week for toxicity check. Further plans will be made after patient is seen later this week. MTDD
[2018-05-16 11:36] LABS: PLATELET COUNT, AUTOMATED 256 K/uL (150-450)
[2018-05-16 14:49] VITALS: BP 108/76
--- NOTE | 2018-05-16 20:52 | ONCOLOGY FOLLOW UP NOTE ---
EVENT DATE: May 16, 2018 DIAGNOSIS Chronic myelogenous leukemia with positive BCR-ABL1 transcript (p210). CHIEF COMPLAINT Patient is here for followup with routine labs per protocol for Tasigna, also here as her Tasigna was held with last dose given this past Sunday. HISTORY OF PRESENT ILLNESS Patient is a 47-year-old female who was diagnosed four years ago as per patient in [place] with CML, and she was put on treatment with chemotherapy as per patient, but most recently was not on any treatment. She also has a history of hemorrhagic stroke in March 2017. She has also a history of hypertension, bipolar disorder, diabetes, and Brea syndrome. Her most recent CBC obtained 05/09/18 revealed a WBC of 22.8, hemoglobin 13.7, hematocrit 41.6%, and platelets 223,000. MCV was slightly low at 77.8. ANC was up to 19.8. She was referred to Dr. Parson for establishment with Oncology for continuation of care for her CML. Unfortunately, we have not had many records from her previous cancer center in [place]. Quantitative PCR for BCR-ABL transcript came back positive for major (p210 BCR-ABL1) transcript. I saw the patient earlier this week after she was seen in the Emergency Room Sunday with numerous complaints. She was diagnosed subsequently with a UTI. When the in ER, she reported worsening fatigue and lethargy, decreased appetite, facial erythema which she likened to a viral-type syndrome, along with chest pain. The patient believed this to be related to Tasigna. On Sunday when I saw her last, her last dose of Tasigna was taken on Sunday evening. She started this last and took this through Sunday. She essentially had four days' worth of treatment. Since the patient had self-discontinued earlier this week, I asked the patient to hold this so that we could re-assess her symptoms today. She was also having abdominal pain at last visit. Today, she tells me that her symptoms have significantly improved, and she is no longer having any abdominal pain, is taking her Ceftin as prescribed through ER, is voiding normally, and reports that her appetite and energy have improved. She still has chronic fatigue, but tells me it is not as bad as it was earlier this week. PAST MEDICAL HISTORY 1. Deaf left ear. 2. Blind left eye. 3. Hypertension. 4. Hemorrhagic stroke in 2018 in March. 5. Bipolar disorder. 6. Diabetes mellitus. 7. CML. 8. Brea syndrome. PAST SURGICAL HISTORY 1. She had three back surgeries. 2. Hysterectomy. 3. Tracheostomy when she had her stroke. 4. Splenectomy. SOCIAL HISTORY Patient is single with no children. She is on disability. Denies any abuse of tobacco, alcohol, or drugs, but she drinks very occasionally. FAMILY HISTORY Maternal grandmother with breast cancer. Sister with pancreatic cancer. Mother had skin cancer. CURRENT MEDICATIONS 1. Vitamin D 50,000 units every week. 2. Atorvastatin 40 mg daily. 3. Lisinopril 40 mg daily. 4. Amlodipine 10 mg daily. 5. Carvedilol 3.125 mg twice daily. ALLERGIES CODEINE which causes her skin to turn red as per patient. REVIEW OF SYSTEMS A 12-point review of systems is performed and is negative except as stated above and immediately below. CONSTITUTIONAL: Patient denies any recent fevers or chills. She reports that she has been compliant with daily Ceftin as prescribed per ER for her recent UTI. PSYCHIATRIC: Patient reports that her anxiety has decreased a bit. She is not as anxious as she was earlier this week. CARDIAC: Patient reports that her chest discomfort has improved. She denies any shortness of breath. LUNGS: She has an occasional productive cough. She denies any dyspnea on exertion or dyspnea at rest. GENITOURINARY: Patient reports that she is urinating well and denies any dysuria, hematuria, or genitourinary discharge. ENDOCRINE: Patient reports ongoing chronic fatigue, but reports that her overall energy has improved in the last few days. PHYSICAL EXAMINATION VITAL SIGNS: Weight today 141 pounds, stable compared to last week. T 98.0 degrees F, P 62, R 16, BP 119/77, oxygen saturation 96% on room air. GENERAL: Patient is a young, 47-year old woman who appears to be in no acute distress. 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 EYES: Sclerae anicteric. MOUTH: Moist mucous membranes. NECK: Supple. No palpable adenopathy. No JVD. LUNGS: Diminished breath sounds to auscultation bilaterally. No shortness of breath on exam. Respiratory effort is normal. Chest expansion is symmetrical. CARDIOVASCULAR: Heart rate regular, normal rhythm, 60 beats per minute. No murmurs or gallops. NEUROLOGIC: Patient is awake, alert, and oriented times three. PSYCHIATRIC: Mood and affect are appropriate and within normal limits. LABORATORY CBC today: WBC 15.2, ANC 13.4, hemoglobin 13.6, hematocrit 40.7%, platelets 256,000. CMP today revealed normal sodium at 141, normal potassium 4.3, serum creatinine 0.90, glucose 171. Total bilirubin normal at 0.4. AST, ALT, and alkaline phosphatase all within normal limits. Albumin normal at 4.5. Calcium normal at 9.3. Magnesium normal at 1.9. IMPRESSION AND PLAN This is a pleasant 47-year old woman with a history of chronic myelogenous leukemia. She was recently initiated on Tasigna 300 mg p.o. b.i.d. and reports starting her first dose on , 05/09/18. She was on Gleevec in the past in [place]. She apparently took only four days' worth of treatment and took her last dose Sunday evening on 05/12/18. She was seen in the Emergency Room that evening secondary to reports of worsening fatigue and lethargy, generalized fatigue and myalgias and arthralgias, chest pain, worsened anxiety, abdominal pain, and dysuria. She also reported decreased appetite for several days. She was seen in the Emergency Room, and WBC was similar to prior labs. She was given intravenous hydration as well as intravenous Rocephin and given a course of Ceftin p.o. Cardiac workup was unremarkable in the Emergency Room. She was told in the Emergency Room that symptoms could be related to her Tasigna. I saw her the day after her emergency room visit, and I instructed the patient to continue holding Tasigna as she had already held it that morning. She is here today for a toxicity check and consideration of re-evaluation of Tasigna. I did explain at last visit that I feel this is unlikely related to her Tasigna. She is questioning if she can take a different medication, or if this is available in intravenous form. She is with her mother today. I also discussed her case today with her medical oncologist, Dr. Parson. 1. Chronic myelogenous leukemia: Patient's last dose of Tasigna was on 05/12/18. She is adamant that she does not feel that she is tolerating this and believes that her symptoms were all related to Tasigna. She did start her oral antibiotics, and her urinary tract infection symptoms have nearly completely resolved. 2. Tasigna: Explained to patient that we could try her on a lower dose of Tasigna, 300 mg once daily, and see if she is able to tolerate a lower dose. I did explain to the patient that there is no data that recommends this dose and that there is not any specific data on efficacy with a lower dose, although this may help her with alleviate some of her perceived symptoms. Discussed this with Dr. Parson, who agrees. Patient agrees to try a lower dose and will initiate this later today. 3. Hydration/oral intake: Patient is eating and drinking well and is drinking apple juice during our visit. Discussed proper hydration in regards to fatigue as well as her recent urinary tract infection. Also discussed nutrition in regards to her diabetes. 4. Patient will continue with weekly labs per orders per Tasigna protocol. She will be due for repeat labs next week. Patient was provided with a copy of today's CBC, which shows an improved WBC. 5. Patient will continue with all of her other home medications, to include her trazodone. 6. Patient will return to clinic in two weeks for followup with me. She will continue with weekly labs per orders. MTDD
[2018-05-24 10:08] VITALS: BP_SYST 107; BP_SYST 108; BP_DIAS 68; BP_DIAS 76
[2018-05-24 10:10] LABS: PLATELET COUNT, AUTOMATED 239 K/uL (150-450)
--- NOTE | 2018-05-24 22:32 | ONCOLOGY FOLLOW UP NOTE ---
EVENT DATE: May 24, 2018 DIAGNOSIS Chronic myelogenous leukemia with positive BCR-ABL1 transcript (p210). CHIEF COMPLAINT Julia was here today for ongoing weekly labs per protocol. She requested an add-on visit. She is now back on Tasigna at a lower dose, 300 mg once daily. She reports feeling tired. HISTORY OF PRESENT ILLNESS Patient is a 47-year-old female who was diagnosed four years ago as per patient in [place] with CML, and she was put on treatment with chemotherapy as per patient, but most recently was not on any treatment. She also has a history of hemorrhagic stroke in March 2017. She has also a history of hypertension, bipolar disorder, diabetes, and Brea syndrome. Her most recent CBC obtained 05/09/18 revealed a WBC of 22.8, hemoglobin 13.7, hematocrit 41.6%, and platelets 223,000. MCV was slightly low at 77.8. ANC was up to 19.8. She was referred to Dr. Parson for establishment with Oncology for continuation of care for her CML. Unfortunately, we have not had many records from her previous cancer center in [place]. I saw her approximately one week ago after she was seen in the ER with numerous complaints, to include chest pain, worsening fatigue and lethargy, decreased appetite, and urinary frequency. She was subsequently diagnosed with a UTI and was started on Ceftin. She tells me that she has one antibiotic left. She has not had any recurrence of any of those symptoms, but she does remain quite fatigued, and this is her main complaint today. She says she feels drained. She reports daily compliance with lower dose Tasigna. She is also reporting some constipation, but has been using MiraLAX. She also reports that she believes that she is gaining weight and is not happy about this. Lastly, she's recently noticed some white vaginal discharge, but denies any burning or itching associated with that. PAST MEDICAL HISTORY 1. Deaf left ear. 2. Blind left eye. 3. Hypertension. 4. Hemorrhagic stroke in 2018 in March. 5. Bipolar disorder. 6. Diabetes mellitus. 7. CML. 8. Brea syndrome. PAST SURGICAL HISTORY 1. She had three back surgeries. 2. Hysterectomy. 3. Tracheostomy when she had her stroke. 4. Splenectomy. SOCIAL HISTORY Patient is single with no children. She is on disability. Denies any abuse of tobacco, alcohol, or drugs, but she drinks very occasionally. FAMILY HISTORY Maternal grandmother with breast cancer. Sister with pancreatic cancer. Mother had skin cancer. CURRENT MEDICATIONS 1. Vitamin D 50,000 units every week. 2. Atorvastatin 40 mg daily. 3. Lisinopril 40 mg daily. 4. Amlodipine 10 mg daily. 5. Carvedilol 3.125 mg twice daily. ALLERGIES CODEINE which causes her skin to turn red as per patient. REVIEW OF SYSTEMS A 12-point review of systems is performed today and is negative other than what is stated above. PHYSICAL EXAMINATION VITAL SIGNS: Most recent weight on 05/13/18 was 68.7 kg. T 97.4, P 73, R 16, BP 107/64, oxygen saturation 94% on room air. GENERAL: This is a young 47-year-old woman with a history of Brea syndrome who appears somewhat fatigued, but is in no acute distress. She appears largely at her baseline. EYES: Sclerae anicteric. MOUTH: Moist mucous membranes. NECK: Supple. No palpable adenopathy. No JVD. LUNGS: Diminished breath sounds to auscultation bilaterally. No shortness of breath on exam. Respiratory effort is normal. Chest expansion is symmetrical. CARDIOVASCULAR: Heart rate regular, normal rhythm, 73 beats per minute. No murmurs or gallops. NEUROLOGIC: Patient is awake, alert, and oriented x3. PSYCHIATRIC: Mood and affect are appropriate and within normal limits. GENITOURINARY: Deferred today. LABORATORY CBC today: WBC 16.2, ANC 14.0, hemoglobin 13.4, hematocrit 40.5%, platelets 239,000. CMP today: Sodium 138, potassium 4.6, serum creatinine 0.90, calcium 9.4, magnesium 1.9, total bilirubin 0.7, AST 21, ALT 53, alkaline phosphatase 76, total protein 7.5, albumin 4.5. CMP was largely unremarkable with the exception of an elevated random glucose at 184. IMPRESSION AND PLAN This is a pleasant 47-year old woman with a history of chronic myelogenous leukemia. She was recently initiated on Tasigna 300 mg p.o. b.i.d. and reports starting her first dose on , 05/09/18. She was on Gleevec in the past in [place]. She initially only took four days' worth of treatment and then was seen in the Emergency Room for numerous complaints to include generalized fatigue, arthralgias, myalgias, chest pain, worsening anxiety, abdominal pain, and dysuria. She was worked up, hydrated, and found to have a urinary tract infection. She was prescribed Ceftin. She then self-discontinued Tasigna. We held this for approximately one week and then saw the patient last on 05/16/18 for followup. At that time, we instructed her to re-initiate Tasigna at a lower dose at 300 mg once daily to see if she would be able to tolerate a lower dose in regards to her perceived side effects. She is aware that there is not any data that recommends a lower dose as far as specific data on efficacy, though we hope that this will alleviate some of her symptoms and still give her good coverage. She has now been on low dose and tells me that she is tolerating well and has not had any recurrence or symptoms. Her main complaint today is ongoing fatigue, which she believes has worsened a bit, but is not a new issue. She is also on numerous other medications, to include several antihypertensives as well as antipsychotics with trazodone which she uses for sleep. 1. Chronic myelogenous leukemia: Patient will remain on lower dose Tasigna, 300 mg once daily, as it seems that she has so far been able to tolerate this better. 2. Dr. Parson is aware of patient's lower dose and agrees with this plan. 3. Primary care physician followup: I have encouraged the patient to follow up with her primary care physician as they are managing her antihypertensives and other medications which could certainly be contributing to her fatigue. I do not think that this is solely related to Tasigna. Julia tells me that she will be following up soon and will call today for a followup appointment. 4. We discussed her hydration and oral intake: Currently, she tells me that she is drinking quite a bit of apple juice and lemonade, and I have advised her to try to drink less sugary drinks and more water. We also discussed her nutrition as she is concerned about weight gain. 5. Patient will continue with weekly labs per Tasigna protocol. She will be due for repeat labs next week. 6. Patient had repeat EKG done today. Results are currently pending. 7. Patient will continue to come in weekly for labs and will see me next week for followup and toxicity check. 8. Patient will be following up at least every three months with CBC, chemistry panel, LDH, uric acid, and quantitative PCR for BCR-ABL1 transcript major. 9. She currently is scheduled to see her medical oncologist in about two to three weeks. 10. For possible vaginal candidiasis, recommended [id number] Monistat. She will notify us if this worsens or will follow up with her primary care physician on this issue. MTDD
[2018-05-30 11:07] VITALS: BP 122/76
[2018-05-30 11:33] LABS: PLATELET COUNT, AUTOMATED 210 K/uL (150-450)
--- NOTE | 2018-05-30 22:50 | ONCOLOGY FOLLOW UP NOTE ---
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 CHIEF COMPLAINT Julia is here today for routine followup and weekly labs per protocol for Tasigna. She remains on lower dose at 300 mg once daily. HISTORY OF PRESENT ILLNESS Patient is a 47-year-old female who was diagnosed four years ago as per patient in [place] with CML, and she was put on treatment with chemotherapy as per patient, but most recently was not on any treatment. She also has a history of hemorrhagic stroke in March 2017. She has also a history of hypertension, bipolar disorder, diabetes, and Brea syndrome. Her most recent CBC obtained 05/09/18 revealed a WBC of 22.8, hemoglobin 13.7, hematocrit 41.6%, and platelets 223,000. MCV was slightly low at 77.8. ANC was up to 19.8. She was referred to Dr. Parson for establishment with Oncology for continuation of care for her CML. Unfortunately, we have not had many records from her previous cancer center in [place]. The week before last, she was seen in the ER with numerous complaints, to include chest pain, worsening fatigue and lethargy, decreased appetite, and urinary frequency. She was subsequently diagnosed with a UTI and was started on Ceftin. She has now completed all antibiotics. She has not had any recurrence of those symptoms, but has reported remaining significantly fatigued. That was her chief complaint last week and remains her biggest issue today. She tells me that she goes to bed at 6 p.m. every night, will have a "hard sleep" until 11 p.m., and then after that, she wakes up a couple more times per evening. This preceded treatment with Tasigna. She takes trazodone every night at bedtime, three tablets. She has had some constipation which has resolved with MiraLAX. She is trying to drink more water and less sugary sodas. She is no longer reporting any vaginal discharge. She tells me that she will be seeing her PCP on 06/16/18 for routine followup. Today, she tells me that aside from having significant fatigue, she has had occasional nausea and also reports a headache, currently ongoing, which she has had for the last couple of days. PAST MEDICAL HISTORY 1. Deaf left ear. 2. Blind left eye. 3. Hypertension. 4. Hemorrhagic stroke in 2018 in March. 5. Bipolar disorder. 6. Diabetes mellitus. 7. CML. 8. Brea syndrome. PAST SURGICAL HISTORY 1. She had three back surgeries. 2. Hysterectomy. 3. Tracheostomy when she had her stroke. 4. Splenectomy. SOCIAL HISTORY Patient is single with no children. She is on disability. Denies any abuse of tobacco, alcohol, or drugs, but she drinks very occasionally. FAMILY HISTORY Maternal grandmother with breast cancer. Sister with pancreatic cancer. Mother had skin cancer. CURRENT MEDICATIONS 1. Vitamin D 50,000 units every week. 2. Atorvastatin 40 mg daily. 3. Lisinopril 40 mg daily. 4. Amlodipine 10 mg daily. 5. Carvedilol 3.125 mg twice daily. ALLERGIES CODEINE which causes her skin to turn red as per patient. REVIEW OF SYSTEMS CONSTITUTIONAL: Today, patient reports significant fatigue. She denies any recent fevers or infections. HEENT: She reports occasionally having floaters in her vision. She is not sure if this is related to her blood pressure or her diabetes. She is scheduled to follow up with her PCP in the near future. LUNGS: She denies any cough, hemoptysis, or pleuritic chest pain. CARDIAC: She denies any chest discomfort. No palpitations, no syncope, no presyncope. GASTROINTESTINAL: She has had occasional nausea over the last week, maybe a couple of episodes. No vomiting. She has had some constipation, relieved by MiraLAX. No bright red blood per rectum or melena. GENITOURINARY: She no longer reports any vaginal discharge. She is no longer having any dysuria. She completed all antibiotics for her UTI. ENDOCRINE: Patient reports ongoing chronic, somewhat worsening fatigue. She feels quite tired. NEUROLOGIC: She reports a headache today, which has been ongoing for a couple of days. She believes maybe she tried Tylenol, but is not sure. She tells me that she has not really taken anything for her headache because of all of her other medications. She would like help with her fatigue and headache today. The remainder of a 12-point review of systems is performed today and is otherwise negative. PHYSICAL EXAMINATION VITAL SIGNS: Weight 68.7 kg per chart on 05/13/18. T 97.7, P 76, R 16, BP 127/76, oxygen saturation 98% room air. GENERAL: This is a pleasant, young 47-year-old woman with a history of Brea syndrome who appears fatigued, but is in no acute distress. EYES: Sclerae anicteric. MOUTH: Moist mucous membranes. No mucositis. NECK: Supple. No adenopathy. No JVD. LUNGS: Diminished breath sounds to auscultation bilaterally. Respiratory effort is normal. CARDIOVASCULAR: Heart rate regular with normal rhythm. No ectopy. ABDOMEN: Soft, nontender, nondistended. No organomegaly. NEUROLOGIC: Patient is awake, alert, and oriented x3. PSYCHIATRIC: Mood and affect are appropriate and within normal limits. LABORATORY CBC today: WBC 11.8, ANC 10.1, positive left shift, hemoglobin 12.5, hematocrit 37.7%, platelets 210,000. Lymphocytes down to 1.2%. CMP today: Sodium minimally low at 136, potassium normal at 4.5, serum creatinine normal at 1.0, random glucose elevated at 215, calcium 9.1, normal, magnesium normal at 1.8, total bilirubin normal at 1.1, AST normal at 17, ALT normal at 46, alkaline phosphatase normal at 78, total protein normal at 7.2, albumin normal at 4.3. IMPRESSION AND PLAN This is a pleasant 47-year old woman with a history of chronic myelogenous leukemia. She was recently initiated on Tasigna 300 mg p.o. b.i.d. and reports starting her first dose on , 05/09/18. She was on Gleevec in the past in [place]. She initially only took four days' worth of treatment and then was seen in the Emergency Room for numerous complaints to include generalized fatigue, arthralgias, myalgias, chest pain, worsening anxiety, abdominal pain, and dysuria. She was worked up, hydrated, and found to have a urinary tract infection. She was prescribed Ceftin. She then self-discontinued Tasigna. We held this for approximately one week and then saw the patient on 05/16/18 for followup. At this time, we had her re-initiate Tasigna at a lower dose at 300 mg once daily to see if she would be able tolerate a lower dose in regards to her perceived side effects. She has been tolerating this fairly well. She has had chronic fatigue which pre-dated initiation with Tasigna. She remains fatigued. She is also on numerous other medications, to include several antihypertensives as well as antipsychotics with trazodone, which she takes at night for sleep. She is reporting significant fatigue today, occasional nausea, as well as headache ongoing for two days. This is a non-migrainous headache. She is not having any neurological changes with it, but is quite distressed over this today. 1. Chronic myelogenous leukemia: Patient will remain on lower dose Tasigna, 300 mg once daily, as she does overall seem to be tolerating with the exception of fatigue, which has been chronic and predated Tasigna. 2. Dr. Parson is aware of patient's lower dose and agrees with this plan. 3. Primary care physician followup: Patient was encouraged to continue to follow up with her PCP as they are managing all of her other medications, and she tells me that she has an appointment scheduled for 06/16/18. 4. Discussed hydration and oral intake. Also discussed her diabetes or prediabetes. 5. For her fatigue, headache, and mild nausea, I am going to see if hydration will help her today. I have ordered 1 L normal saline intravenously along with low-dose dexamethasone 6 mg intravenously to see if that may potentially help her headache, as well as promethazine low dose, 6.25 mg for headache and nausea. I did initially want to use Compazine, but this is not available today. I did caution over potential worsening of her blood sugar with the corticosteroid. I also discussed that this may not completely resolve her headache, but she is willing to try this, especially if this can potentially help her energy. 6. She will try OTC medications like Tylenol for any recurrent headaches or general arthraglias. She will try adding Melatonin 5-7 mg po Q HS to help with insomnia. 6. Patient will return to clinic next week for weekly labs per protocol. 7. She will return to clinic for followup in two weeks. ABE
--- NOTE | 2018-05-31 13:07 | Oncology Note ---
Called pt. today at 12:00 PM to inform her of elevated BG yesterday when in clinic, BG= 215. Labs were drawn prior to any treatment, prior to IVFs or IV antiemetics (to include IV Dexamethasone). Pt didn't answer call, but voicemail was left notifying her of blood glucose and the need for her to FU with her PCP. PCP is managing her DM and medications. Arti Evans, ANGEL-CINTIA GARCIA APRN,ANGEL May 31, 2018 13:07
[2018-06-07 14:24] VITALS: BP 127/88
[2018-06-07 14:30] LABS: PLATELET COUNT, AUTOMATED 281 K/uL (150-450)
--- NOTE | 2018-06-08 21:21 | [facility] ONCOLOGY NOTE ---
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 CHIEF COMPLAINT Patient is here today for followup of her CML. HEMATOLOGY/ONCOLOGY HISTORY Patient is a 47-year-old female who was diagnosed four years ago as per patient in [place] with CML, and she was put on treatment with chemotherapy as per patient, but she is not currently on any treatment. Patient also has a history of hemorrhagic stroke in March 2017. She has also a history of hypertension, bipolar disorder, diabetes, Brea syndrome. She had a blood count which showed white count 17.5, hemoglobin 14.2, hematocrit 45.3, platelets 199,000. MCV was 78.2. A1c was 14.5, and no left shift in her CBC. Patient was referred for establishment of care for her CML. Unfortunately, there are not any records from her previous cancer center in [place]. Quantitative PCR for BCR-ABL transcript came back positive for major (p210 BCR-ABL1) transcript. Patient started treatment with Tasigna April 2018. HISTORY OF PRESENT ILLNESS Patient is here today for followup of her CML. She is complaining of some runny nose and dry cough. She has constipation. She has pain in her right hip. She has some numbness and tingling in her right arm. She has also significant headache and insomnia. She bruises easily. PAST MEDICAL HISTORY 1. Deaf left ear. 2. Blind left eye. 3. Hypertension. 4. Hemorrhagic stroke in 2018 in March. 5. Bipolar disorder. 6. Diabetes mellitus. 7. CML. 8. Brea syndrome. PAST SURGICAL HISTORY 1. She had three back surgeries. 2. Hysterectomy. 3. Tracheostomy when she had her stroke. 4. Splenectomy. SOCIAL HISTORY Patient is single with no children. She is on disability. Denies any abuse of tobacco, alcohol, or drugs, but she drinks very occasionally. FAMILY HISTORY Maternal grandmother with breast cancer. Sister with pancreatic cancer. Mother had skin cancer. CURRENT MEDICATIONS 1. Vitamin D 50,000 units every week. 2. Atorvastatin 40 mg daily. 3. Lisinopril 40 mg daily. 4. Amlodipine 10 mg daily. 5. Carvedilol 3.125 mg twice daily. ALLERGIES CODEINE which causes her skin to turn red as per patient. REVIEW OF SYSTEMS CONSTITUTIONAL: No appetite or weight change. No fever, chills, or sweating. No recent infection. HEENT: Ears: No tinnitus or hearing problem. Nose: She has a runny nose. No epistaxis. Throat: No sore throat or mouth ulcers. Eyes: No diplopia or visual changes. RESPIRATORY: No shortness of breath. She has a dry cough. No expectoration or hemoptysis. CARDIOVASCULAR: No chest pain, orthopnea, or paroxysmal nocturnal dyspnea (PND). No edema. No palpitations. GASTROINTESTINAL: No nausea or vomiting. No diarrhea. She has constipation. No change in bowel movements. No heartburn or swallowing difficulties. No abdominal pain. No jaundice. No hematemesis, melena, or rectal bleeding. GENITOURINARY: No hematuria or dysuria. MUSCULOSKELETAL: She has right hip pain. NEUROLOGICAL: She has headache and insomnia and right arm tingling and numbness. No convulsions. HEMATOLOGIC/LYMPHATIC: No bleeding. She bruises easily. No weakness or fatigue. No enlarged lymph nodes. SKIN: No skin rash or lumps. PSYCHIATRIC: No anxiety or depression. PHYSICAL EXAMINATION GENERAL: Looks stable. Well developed, well nourished, and in no acute distress. VITAL SIGNS: Blood pressure 127/88, pulse 87 per minute, respirations 16 per minute, temperature 99.4, pulse ox 94% on room air. HEENT: Head: Atraumatic. No sinus tenderness to palpation. Eyes: No icterus or conjunctivitis. Mouth and Throat: No oral thrush or mucositis. NECK: Supple. No cervical or supraclavicular lymphadenopathy. LUNGS: Clear to auscultation and percussion bilaterally. HEART: Regular rate and rhythm. No gallops, murmurs, clicks, or rubs. ABDOMEN: Soft and lax. No tenderness. No hepatosplenomegaly. No masses. EXTREMITIES: No cyanosis, clubbing, or edema. LYMPHATICS: No peripheral lymphadenopathy. NEUROLOGICAL: Conscious, alert, and oriented times three. No focal motor or sensory deficits. PSYCHIATRIC: Mood and affect appear normal. SKIN: No skin rash, bruise, or purpuric eruption. DIAGNOSTIC DATA CBC showed white count 9.8, hemoglobin 13.7, hematocrit 41.2, platelets 281,000. ASSESSMENT Chronic myelogenous leukemia with positive BCR-ABL major (p210) at a level of 25.9536%. Patient moved to the area recently, and she was not on any treatment. She has social issues for buying the drug. Patient started Tasigna 300 mg twice daily in April 2018. She is tolerating the drug well so far. I am planning to see her in three months from when she started Tasigna with CBC, chemistry panel, and quantitative PCR for BCR-ABL measure (p210). I explained that to the patient. Patient agreeable with the plan of management. PLAN 1. Tasigna 300 mg twice daily. 2. Patient to return in three months with CBC, chem panel, LDH, uric acid, quantitative PCR for BCR-ABL1 transcript major (p210). 3. Patient to contact us for any new concerns or complaints. MTDD
[2018-06-21 10:54] VITALS: BP 111/69
[2018-06-21 11:10] LABS: PLATELET COUNT, AUTOMATED 152 K/uL (150-450)
--- NOTE | 2018-06-22 09:56 | ONCOLOGY FOLLOW UP NOTE ---
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 CHIEF COMPLAINT Patient is here today for followup for her CML. HEMATOLOGY/ONCOLOGY HISTORY Patient is a 47-year-old female who was diagnosed four years ago as per patient in [place] with CML, and she was put on treatment with chemotherapy as per patient, but she is not currently on any treatment. Patient also has a history of hemorrhagic stroke in March 2017. She has also a history of hypertension, bipolar disorder, diabetes, Brea syndrome. She had a blood count which showed white count 17.5, hemoglobin 14.2, hematocrit 45.3, platelets 199,000. MCV was 78.2. A1c was 14.5, and no left shift in her CBC. Patient was referred for establishment of care for her CML. Unfortunately, there are not any records from her previous cancer center in [place]. Quantitative PCR for BCR-ABL transcript came back positive for major (p210 BCR-ABL1) transcript. Patient started treatment with Tasigna May 09, 2018. A week later, she required dose reduction down to 300 mg once daily versus 300 mg p.o. b.i.d. She has been tolerating this dose well. We dose reduced secondary to reports of worsening fatigue, headache, nausea and overall lethargy. HISTORY OF PRESENT ILLNESS Patient is here today for followup of her CML. She reports feeling tired but tells me that this actually a little bit better than last visit. She is reporting some right hip pain, which has been chronic. She has some numbness and tingling in her right arm as well. She denies any current headache or recent headaches. She does have significant insomnia and is on prescription sleep aids. She has not yet followed up with her PCP per our recommendations to re-evaluate her regimen. She tells me that she will be following up with Dr. Conde on July 16, 2018. She does bruise easily. She has not had any recent infections and has not had any hospitalizations since we last saw her. She did initiate Tasigna on May 09, 2018. A week later, we dose-reduced her to half the dose, or 300 mg once daily due to numerous reported side effects. She has been tolerating that lower dose thus far quite well. PAST MEDICAL HISTORY 1. Deaf left ear. 2. Blind left eye. 3. Hypertension. 4. Hemorrhagic stroke in 2018 in March. 5. Bipolar disorder. 6. Diabetes mellitus. 7. CML. 8. Brea syndrome. PAST SURGICAL HISTORY 1. She had three back surgeries. 2. Hysterectomy. 3. Tracheostomy when she had her stroke. 4. Splenectomy. SOCIAL HISTORY Patient is single with no children. She is on disability. Denies any abuse of tobacco, alcohol, or drugs, but she drinks very occasionally. FAMILY HISTORY Maternal grandmother with breast cancer. Sister with pancreatic cancer. Mother had skin cancer. CURRENT MEDICATIONS 1. Vitamin D 50,000 units every week. 2. Atorvastatin 40 mg daily. 3. Lisinopril 40 mg daily. 4. Amlodipine 10 mg daily. 5. Carvedilol 3.125 mg twice daily. ALLERGIES CODEINE which causes her skin to turn red as per patient. REVIEW OF SYSTEMS CONSTITUTIONAL: Patient denies any recent fevers, chills or night sweats. No recent infections. HEENT: No vision changes. No tinnitus. She has occasional floaters in her vision. She does have occasional runny nose. No epistaxis. No mouth sores. RESPIRATORY: No shortness of breath. She has an occasional cough. She occasionally has some expectoration. No hemoptysis. No pleuritic chest pain. CARDIOVASCULAR: She denies any chest pain. No palpitations, syncope or presyncope. GASTROINTESTINAL: No abdominal pain, nausea, vomiting or diarrhea. She does have constipation and uses [id number] measures for this. No changes in bowels. No bright red blood per rectum or melena. Appetite is stable. GENITOURINARY: No dysuria, hematuria or genitourinary discharge. MUSCULOSKELETAL: She reports some right hip pain, which has been chronic. Otherwise, no focal findings. NEUROLOGICAL: She has not had any further headaches. She does have a history of numbness and tingling to the right arm, which has been stable. No seizure like activity. HEMATOLOGIC/LYMPHATIC: No free bleeding. She does tend to bruise easily. ENDOCRINE: No heat or cold intolerance. She reports chronic significant fatigue, which is stable. She does also report significant insomnia. PSYCHIATRIC: She denies any severe depression, severe anxiety, suicidal or homicidal ideation. DERM: She denies any rash or generalized pruritus. She denies any suspicious lumps or bumps. PHYSICAL EXAMINATION VITAL SIGNS: Weight 69 kg, down 2 kg compared to May 28, 2018. T 97.0, P 105, R 16, BP 111/69, oxygen saturation 97% room air. She lists her fatigue level at 10/10 but tells me this is quite normal for her. 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 HEAD: Atraumatic, normocephalic. EYES: Sclerae anicteric. ENT: No mucositis. No suspicious oral ulcerations. NECK: Supple. No lymphadenopathy. No JVD. LUNGS: Clear to auscultation and percussion bilaterally. No wheezes, rales or rhonchi. HEART: Mild tachycardia, regular rhythm. No ectopy. ABDOMEN: Soft, nontender, nondistended. No organomegaly. EXTREMITIES: No edema. No clubbing or cyanosis. NEUROLOGICAL: Patient is awake, alert, oriented x3. No focal motor or sensory deficits other than history of chronic numbness and tingling to the right upper arm, status post hemorrhagic stroke in March 2017. PSYCHIATRIC: Mood and affect are appropriate today. DERM: No rash, petechia or purpura. MUSCULOSKELETAL: Gait is steady. LABORATORY CBC today: WBC 9.1, ANC 7.5, hemoglobin 12.7, hematocrit 38.4%, platelets 152,000. CMP today: Largely unremarkable with normal sodium at 140, normal potassium 4.2, glucose elevated at 115 but this has improved compared to prior draws. Calcium normal at 9.2. Magnesium minimally low at 1.6. Total bilirubin and LFTs all normal to include total bilirubin 0.3, AST 17, ALT 43, alkaline phosphatase 67, total protein normal at 6.7. IMPRESSION AND PLAN This is a pleasant 47-year old woman with chronic myelogenous leukemia with positive BCR-ABL major (p210) at a level of 25.9536%. Patient moved to the area recently, and she was not on any treatment. She has social issues for buying the drug. Patient started Tasigna 300 mg twice daily on May 09, 2018. She reported significant side effects in the form of dehydration, decreased oral intake, increased fatigue with lethargy, generalized malaise, nausea, vomiting, abdominal pain and urinary symptoms a few days after beginning treatment. We then dose-reduced her to 300 mg once daily a week later. She has been on lower dose since that time. We discussed with her medical oncologist and we did explain to Julia that there is no significant data showing dose reduction compared to full dose, although we are going to see if she continues to have positive effect with the lower dose. She has been tolerating that well so far since dose reduction. We plan to repeat labs to include PCR for BCR-ABL every three months. She does have significant insomnia and we have encouraged her to followup with her PCP, who is managing all of her medications. 1. Tasigna: Patient will remain on decreased dose at 300 mg once daily. She has been tolerating this well since dose reduction. No changes will be made at this time. 2. Labs look good today. These are reviewed with patient. She has a minimally low magnesium level and we discussed the need to try to increase magnesium rich foods. We will continue to monitor her. 3. Patient will return to the clinic monthly for followup with each monthly cycle of Tasigna. She is currently about 1-1/2 cycles in. 4. Patient will return to the clinic in one month for followup and repeat labs. 5. Patient will return to the clinic in three months to follow up with her medical oncologist as well as repeat labs with CBC, CMP, LDH, uric acid and quantitative PCR for BCR-ABL. MTDD
[2018-07-08 11:03] LABS: PLATELET COUNT, AUTOMATED 216 K/uL (150-450)
[2018-07-08 11:07] VITALS: BP 108/68
--- NOTE | 2018-07-09 02:58 | ONCOLOGY FOLLOW UP NOTE ---
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 CHIEF COMPLAINT Patient is here today for followup for her CML. HEMATOLOGY/ONCOLOGY HISTORY Patient is a 47-year-old female who was diagnosed four years ago, as per patient in [place], with CML, and she was put on treatment with chemotherapy as per patient, but she is not currently on any treatment. Patient also has a history of hemorrhagic stroke in March 2017. She has also a history of hypertension, bipolar disorder, diabetes, Brea syndrome. She had a blood count which showed white count 17.5, hemoglobin 14.2, hematocrit 45.3, platelets 199,000. MCV was 78.2. A1c was 14.5, and no left shift in her CBC. Patient was referred for establishment of care for her CML. Unfortunately, there are not any records from her previous cancer center in [place]. Quantitative PCR for BCR-ABL transcript came back positive for major (p210 BCR-ABL1) transcript. Patient started treatment with Tasigna May 09, 2018. A week later, she required dose reduction down to 300 mg once daily versus 300 mg p.o. b.i.d. She has been tolerating this dose well. We dose-reduced secondary to reports of worsening fatigue, headache, nausea and overall lethargy. HISTORY OF PRESENT ILLNESS Julia is here today for followup for her CML. She reports overall feeling well. She does have some fatigue, though tells me this has improved a bit, as she did start exercising one week ago. She reports that she is drinking much more water than she used to, and is now drinking three quarts of water per day. She is down to one soda pop per week. She is quite frustrated, though, as her weight is actually up 2 to 3 pounds today, and she expected this to be lower in one week. She is also reporting some mild right hip pain. She has not tried any medications for this. Her hip pain has been chronic, and she has undergone physical therapy in the past, though this was a few years ago with her stroke. She has some chronic numbness and tingling in her right arm as well. She denies any recent or current headaches. She has had some significant insomnia, though is on prescription sleep aids, and for now reports that this is under control. She will be following up with her PCP, Dr. Conde, on 07/16/18. She continues to bruise easily, though this is unchanged. She has not had any recent infectious or hospitalizations since we last saw her. She initiated Tasigna on 05/09/18. A week later, we dose-reduced her to half the dose, or 300 mg once daily, due to numerous reported side effects. She has been tolerating lower dose thus far quite well. PAST MEDICAL HISTORY 1. Deaf left ear. 2. Blind left eye. 3. Hypertension. 4. Hemorrhagic stroke in 2018 in March. 5. Bipolar disorder. 6. Diabetes mellitus. 7. CML. 8. Brea syndrome. PAST SURGICAL HISTORY 1. She had three back surgeries. 2. Hysterectomy. 3. Tracheostomy when she had her stroke. 4. Splenectomy. SOCIAL HISTORY Patient is single with no children. She is on disability. Denies any abuse of tobacco, alcohol, or drugs, but she drinks very occasionally. FAMILY HISTORY Maternal grandmother with breast cancer. Sister with pancreatic cancer. Mother had skin cancer. CURRENT MEDICATIONS 1. Vitamin D 50,000 units every week. 2. Atorvastatin 40 mg daily. 3. Lisinopril 40 mg daily. 4. Amlodipine 10 mg daily. 5. Carvedilol 3.125 mg twice daily. ALLERGIES CODEINE which causes her skin to turn red as per patient. REVIEW OF SYSTEMS CONSTITUTIONAL: Patient denies any recent fevers, chills or night sweats. No recent infections. HEENT: No vision changes. No tinnitus. She has occasional floaters in her vision. She does have occasional runny nose. No epistaxis. No mouth sores. RESPIRATORY: No shortness of breath. She has an occasional cough. She occasionally has some expectoration. No hemoptysis. No pleuritic chest pain. CARDIOVASCULAR: She denies any chest pain. No palpitations, syncope or presyncope. GASTROINTESTINAL: No abdominal pain, nausea, vomiting or diarrhea. She does have constipation and uses [id number] measures for this. No changes in bowels. No bright red blood per rectum or melena. Appetite is stable. GENITOURINARY: No dysuria, hematuria or genitourinary discharge. MUSCULOSKELETAL: She reports some right hip pain, which has been chronic. Otherwise, no focal findings. NEUROLOGICAL: She has not had any further headaches. She does have a history of numbness and tingling to the right arm, which has been stable. No seizure like activity. HEMATOLOGIC/LYMPHATIC: No free bleeding. She does tend to bruise easily. ENDOCRINE: No heat or cold intolerance. She reports chronic fatigue, though this is stable. This actually improved after recently exercising and increasing water intake the last week. She also reports significant insomnia, unchanged. PSYCHIATRIC: She denies any severe depression, severe anxiety, suicidal or homicidal ideation. DERM: She denies any rash or generalized pruritus. She denies any suspicious lumps or bumps. PHYSICAL EXAMINATION VITAL SIGNS: T 99.3, P 67, R 16, BP 108/68, oxygen saturation 96% room air. Weight today 69 kg, stable. GENERAL: This is a pleasant 47-year old woman with Brea syndrome, who appears to be in no acute distress. HEAD: Atraumatic, normocephalic. EYES: Sclerae anicteric. ENT/MOUTH: No mucositis. No suspicious oral ulcerations. NECK: Supple. No lymphadenopathy. No JVD. LUNGS: Clear to auscultation and percussion bilaterally. No wheezes, rales or rhonchi. HEART: Mild tachycardia, regular rhythm. No ectopy. ABDOMEN: Soft, nontender, nondistended. No organomegaly. EXTREMITIES: No edema. No clubbing or cyanosis. NEUROLOGICAL: Patient is awake, alert, oriented x3. No focal motor or sensory deficits other than history of chronic numbness and tingling to the right upper arm, status post hemorrhagic stroke in March 2017. PSYCHIATRIC: Mood and affect are appropriate today. DERM: No rash, petechia or purpura. MUSCULOSKELETAL: Gait is steady. LABORATORY CBC today: WBC 10.5, ANC 8.4, hemoglobin 13.5, hematocrit 40.6%, platelets 216,000. CMP today: Unremarkable with the exception of mildly elevated glucose at 137. Serum creatinine normal at 1.0. Magnesium normal at 1.9. Calcium normal at 9.2. LFTs are normal, to include AST normal at 19, ALT normal at 31, alkaline phosphatase normal at 52, total bilirubin normal at 0.4. IMPRESSION AND PLAN This is a pleasant 47-year old woman with chronic myelogenous leukemia with positive BCR-ABL major (p210) at a level of 25.9536%. Patient moved to the area recently, and she was not on any treatment. She has social issues for buying the drug. Patient started Tasigna 300 mg twice daily on May 09, 2018. She reported significant side effects in the form of dehydration, decreased oral intake, increased fatigue with lethargy, generalized malaise, nausea, vomiting, abdominal pain and urinary symptoms a few days after beginning treatment. We then dose-reduced her to 300 mg once daily a week later. She has been on lower dose since that time. We discussed with her medical oncologist and we did explain to Julia that there is no significant data showing dose reduction compared to full dose, although we are going to see if she continues to have positive effect with the lower dose. She has been tolerating that well so far since dose reduction. We plan to repeat labs to include PCR for BCR-ABL every three months. Her insomnia is chronic, though currently under control. She will be following up with her PCP in early July. She is tolerating 300 mg once-daily dosing quite well. Her counts look good. She recently started an exercise program. She is interested in information on nutrition. 1. Tasigna: Patient has now completed just over two cycles, or two months, of Tasigna. She is on decreased dose of 300 mg daily due to side effects and is tolerating this much better. We will continue with that dose reduction. No other changes will be made at this time. 2. Labs reviewed today. 3. I have made referral to our services coordinator, as patient does have some questions about proper dieting. 4. Patient will return to the clinic next week for weekly labs. 5. Patient will return to the clinic for followup with her medical oncologist as scheduled on 08/01/18. MTDD
[~2018-08-01 09:52] MED LIST changes: +DEXAMETHASONE SOD 4 MG/ML VIAL IVP ONE; +DEXAMETHASONE SOD PHOS 10MG/ML IVP ONE; +DEXTROSE 5%(*) 100 ML BAG 100 ML IVPB PRN; +LIDOCAINE/SOD BICARB 8.4% SYR ID PRN; +NS(*) 0.9% 100 ML BAG 100 ML IVPB PRN; +NS(*) 0.9% 1000 ML BAG 1,000 ML IV PRN; +PROMETHAZINE 25 MG/ML 1 ML AMP IVP ONE
[2018-08-01 10:41] LABS: PLATELET COUNT, AUTOMATED 220 K/uL (150-450)
--- NOTE | 2018-08-01 13:47 | [facility] ONCOLOGY NOTE ---
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 CHIEF COMPLAINT Patient is here today for followup of her CML. HEMATOLOGY/ONCOLOGY HISTORY Patient is a 47-year-old female who was diagnosed four years ago as per patient in [place] with CML, and she was put on treatment with chemotherapy as per patient, but she is not currently on any treatment. Patient also has a history of hemorrhagic stroke in March 2017. She has also a history of hypertension, bipolar disorder, diabetes, Brea syndrome. She had a blood count which showed white count 17.5, hemoglobin 14.2, hematocrit 45.3, platelets 199,000. MCV was 78.2. A1c was 14.5, and no left shift in her CBC. Patient was referred for establishment of care for her CML. Unfortunately, there are not any records from her previous cancer center in [place]. Quantitative PCR for BCR-ABL transcript came back positive for major (p210 BCR-ABL1) transcript. Patient started treatment with Tasigna April 2018. HISTORY OF PRESENT ILLNESS Patient is here today for followup of her CML, on Tasigna. She is complaining of some runny nose. She has cough with expectoration. She has constipation. She has generalized bone aches. She has also occasional headache and she bruises easily. PAST MEDICAL HISTORY 1. Deaf left ear. 2. Blind left eye. 3. Hypertension. 4. Hemorrhagic stroke in 2018 in March. 5. Bipolar disorder. 6. Diabetes mellitus. 7. CML. 8. Brea syndrome. PAST SURGICAL HISTORY 1. She had three back surgeries. 2. Hysterectomy. 3. Tracheostomy when she had her stroke. 4. Splenectomy. SOCIAL HISTORY Patient is single with no children. She is on disability. Denies any abuse of tobacco, alcohol, or drugs, but she drinks very occasionally. FAMILY HISTORY Maternal grandmother with breast cancer. Sister with pancreatic cancer. Mother had skin cancer. CURRENT MEDICATIONS 1. Vitamin D 50,000 units every week. 2. Atorvastatin 40 mg daily. 3. Lisinopril 40 mg daily. 4. Amlodipine 10 mg daily. 5. Carvedilol 3.125 mg twice daily. ALLERGIES CODEINE which causes her skin to turn red as per patient. REVIEW OF SYSTEMS CONSTITUTIONAL: No appetite or weight change. No fever, chills, or sweating. No recent infection. HEENT: Ears: No tinnitus or hearing problem. Nose: She has nasal discharge. Throat: No sore throat or mouth ulcers. Eyes: No diplopia or visual changes. RESPIRATORY: She has cough with expectoration. CARDIOVASCULAR: No chest pain, orthopnea, or paroxysmal nocturnal dyspnea (PND). No edema. No palpitations. GASTROINTESTINAL: She has constipation. GENITOURINARY: No hematuria or dysuria. MUSCULOSKELETAL: She has generalized bone aches. NEUROLOGICAL: She has occasional headache. HEMATOLOGIC/LYMPHATIC: She bruises easily. SKIN: No skin rash or lumps. PSYCHIATRIC: No anxiety or depression. PHYSICAL EXAMINATION GENERAL: Looks stable. Well developed, well nourished, and in no acute distress. VITAL SIGNS: Blood pressure 126/84, pulse 73 per minute, respirations 16 per minute, temperature 97.3, pulse ox 97% on room air. HEENT: Head: Atraumatic. No sinus tenderness to palpation. Eyes: No icterus or conjunctivitis. Mouth and Throat: No oral thrush or mucositis. NECK: Supple. No cervical or supraclavicular lymphadenopathy. LUNGS: Clear to auscultation and percussion bilaterally. HEART: Regular rate and rhythm. No gallops, murmurs, clicks, or rubs. ABDOMEN: Soft and lax. No tenderness. No hepatosplenomegaly. No masses. EXTREMITIES: No cyanosis, clubbing, or edema. LYMPHATICS: No peripheral lymphadenopathy. NEUROLOGICAL: Conscious, alert, and oriented times three. No focal motor or sensory deficits. PSYCHIATRIC: Mood and affect appear normal. SKIN: No skin rash, bruise, or purpuric eruption. DIAGNOSTIC DATA Pending. ASSESSMENT Chronic myelogenous leukemia with positive BCR-ABL major (p210) at a level of 25.9536%. Patient moved to the area recently and she was not on any treatment. She has social issues for buying the drug. Patient started Tasigna 300 mg twice daily in April 2018. She is tolerating treatment so far very well. Her labs requested today still pending the results. I wish we can see some improvement in her quantitative PCR. In the meantime, I will continue Tasigna 300 mg twice daily. I will see her in three months from now with CBC, chem panel and quantitative PCR for BCR-ABL transcript. PLAN 1. Tasigna 300 mg twice daily. 2. Patient to return in three months with CBC, chem panel, LDH, uric acid, quantitative PCR for BCR-ABL1 transcript major (p210). 3. Patient to contact us for any new concerns or complaints. MTDD
== END 2018-08-06 ==
LOC: ONC 09:52
PROVIDERS: ATTEND Internal Medicine Hematology
DX: C92.10 Chronic myeloid leukemia, BCR/ABL-positive, not having achieved remission (principal); R71.8 Other abnormality of red blood cells; Q93.89 Other deletions from the autosomes; Z92.21 Personal history of antineoplastic chemotherapy; I10 Essential (primary) hypertension; E11.9 Type 2 diabetes mellitus without complications; Z86.73 Personal history of transient ischemic attack (TIA), and cerebral infarction without residual deficits; F31.9 Bipolar disorder, unspecified; R53.83 Other fatigue; R51 Headache; R20.2 Paresthesia of skin; K59.00 Constipation, unspecified; N39.0 Urinary tract infection, site not specified
CPT/HCPCS: 36415; 83735; 85025; 93005; 96374; 96375; G0463; J1100; J2550; 82040; 82247; 82310; 82374; 82435; 82565; 82947; 84075; 84132; 84155; 84295; 84450; 84460; 84520; 99212

== ENCOUNTER → 2018-10-03 | Outpatient (CLI) | payer MEDICARE, MEDICAID ==
[~2018-10-03] MED LIST changes: -DEXAMETHASONE SOD 4 MG/ML VIAL IVP ONE; -DEXAMETHASONE SOD PHOS 10MG/ML IVP ONE; -DEXTROSE 5%(*) 100 ML BAG 100 ML IVPB PRN; -LIDOCAINE/SOD BICARB 8.4% SYR ID PRN; -NS(*) 0.9% 100 ML BAG 100 ML IVPB PRN; -NS(*) 0.9% 1000 ML BAG 1,000 ML IV PRN; -PROMETHAZINE 25 MG/ML 1 ML AMP IVP ONE; +TRAZ100T31 PO; -TRAZ50TA34 PO; +TRAZ50TA52 PO
== END ==
LOC: LAB 09:07
PROVIDERS: ATTEND Internal Medicine
DX: R30.9 Painful micturition, unspecified (principal)
CPT/HCPCS: 81001; 87088